=== PATIENT | male | born 1950 | race Hispanic/Latino ===

== ENCOUNTER 2020-07-18 13:15 | Inpatient (IN) | payer MEDICARE, MEDICAID, SELFPAY ==
[2020-07-18 13:16] VITALS: BP 168/91; PULSE 84; RESP 16; TEMP 36.6; O2SAT 100; BMI 22.3
--- NOTE | 2020-07-18 13:41 | EKG12_ITS ---
Test Reason : FALL Blood Pressure : / mmHG Vent. Rate : 078 BPM Atrial Rate : 078 BPM P-R Int : 196 ms QRS Dur : 068 ms QT Int : 366 ms P-R-T Axes : 078 050 058 degrees QTc Int : 417 ms Normal sinus rhythm Septal infarct , age undetermined Abnormal ECG Confirmed by LIZZY AVINA, MIKE ([id number]), clinical editor BRIDGETT VOGT ([id number]) on 07/19/2020 11:16:55 AM Referred By: EDGAR Confirmed By:MIKE BALL MD
--- NOTE | 2020-07-18 13:41 | RAD_ITS ---
STUDY: X-RAY - PELVIS AND RIGHT HIP REASON FOR EXAM: Male, 69 years old. FALL, RT HIP PAIN TECHNIQUE: 3 views of the pelvis and hip. COMPARISON: None. FINDINGS: There is a non-specific bowel gas pattern. Normal visualized soft tissue structures. There are atherosclerotic vascular calcifications. Normal bilateral iliac wings, sacroiliac joints and visualized sacrum. Normal bilateral superior and inferior pubic rami. Normal pubic symphysis. Normal bilateral ischial tuberosities. Displaced transverse fracture of the right femoral neck with moderate proximal subsidence of the femoral shaft. There is osteoarthritic spur formation of the acetabular rim. There is moderate articular joint space narrowing of the hip. RAD/HIP, UNI W/ Pelvis 2-3 Views IMPRESSION: Right femoral neck fracture with displacement. Electronically Signed: Colvis Ivan MD (Brooks) at 14:37 EST , Service support ,
--- NOTE | 2020-07-18 13:41 | RAD_ITS ---
STUDY: X-RAY CHEST REASON FOR EXAM: Male, 69 years old. FALL, RT HIP PAIN TECHNIQUE: AP COMPARISON: None. FINDINGS: There is a granuloma in the lateral left lower lobe. The lungs are clear and expanded. There is no demonstrated pleural abnormality. Normal size heart. There are calcified left hilar lymph nodes. Normal visualized pulmonary arteries. There is atherosclerotic calcification of the aortic arch with tortuosity. There is demineralization of the osseous structures. Normal visualized ribs, clavicles, and shoulders. There is no demonstrated abnormality of the visualized soft tissue structures of the upper abdomen. RAD/Chest 1 View (Portable) IMPRESSION: No acute cardiopulmonary process. Electronically Signed: Clovis Ivan MD (Brooks) at 14:37 EST , Service support ,
--- NOTE | 2020-07-18 13:42 | ED.VIS.GEN ---
History of Present Illness Chief Complaint: Fall Narrative: This patient is a 69-year-old male who presents with right hip pain. He fell while walking up the steps. He did not hit his head. He denies loss of consciousness. He complains of isolated right hip pain. He denies recent illness such as fevers chest pain difficulty breathing cough. He is not anticoagulated. Past Medical History - Allergies and Home Meds Allergies/Adverse Reactions: Allergies No Known Allergies Allergy (Verified 07/18/20 13:27) Primary Care Physician: NOT,DEFINED [NON-STAFF] - Past Medical History: - - Hypertension, hyperlipidemia Smoking Status: Current every day smoker Review of Systems All systems negative except as indicated General: Denies: Fever Eyes: Denies: Visual changes - bilaterally Cardiovascular: Denies: Chest pain Respiratory: Denies: Dyspnea Gastrointestinal: Denies: Abdominal pain Musculoskeletal: Reports: Extremity Pain. Denies: Myalgias, Arthralgias Skin: Denies: Rash Neurological: Denies: Headache Hematologic: Denies: Easy bruising Physical Exam Vital Signs/Narrative: Vital Signs Temp Pulse Resp BP Pulse Ox 07/18/20 13:16 97.8 F 84 16 168/91 H 100 Inital Vital Signs reviewed: Yes General: Well nourished Head: Normocephalic Eyes: EOMI ENT: Moist mucous membranes Neck: Nontender Cardiovascular: Regular rate, Regular rhythm Respiratory: No distress, CTA bilaterally Abdomen: Soft, Nontender Extremities: - - Painful limited range of motion of the right hip, tenderness of the right hip, pelvis stable, full passive range of motion of the bilateral upper extremities and left lower extremity without any apparent pain. Skin: Normal color Neurological: Alert Psychological: Normal affect Diagnostic/Tx/Re-eval Impressions Chest X-Ray 07/18/20 13:41 IMPRESSION: No acute cardiopulmonary process. Electronically Signed: Clovis Ivan MD (Brooks) at 14:37 EST , Service support , Hip/Pelvis X-Ray 07/18/20 13:41 IMPRESSION: Right femoral neck fracture with displacement. Electronically Signed: Clovis Ivan MD (Brooks) at 14:37 EST , Service support , 07/18/20 13:41 Chest 1 View (Portable) [RAD] Stat HIP, UNI W/ Pelvis 2-3 Views [RAD] Stat Laboratory Results 07/18/20 07/18/20 07/18/20 13:57 13:57 13:57 WBC 11.3 H RBC 4.84 Hgb 13.7 Hct 43.6 MCV 90.1 MCH 28.3 MCHC 31.4 L RDW Std Deviation 50.0 H RDW Coeff of Tabby 15.2 H Plt Count 204 MPV 10.1 Immature Gran % (Auto) 0.400 Neut % (Auto) 85.9 H Lymph % (Auto) 7.3 L [place] % (Auto) 6.1 Eos % (Auto) 0.1 Baso % (Auto) 0.2 Absolute Neuts (auto) 9.7 H Absolute Lymphs (auto) 0.82 L Nucleated RBC % 0 PT 13.0 INR 1.0 Sodium 142 Potassium 3.8 Chloride 108 H Carbon Dioxide 30.0 Anion Gap 4 L BUN 23 H Creatinine 0.76 Estim Creat Clear Calc 54.60 Est GFR (MDRD) Af Amer 130 Est GFR (MDRD) Non-Af 107 BUN/Creatinine Ratio 30.1 H Glucose 120 H Calcium 9.7 - Medical Decision Making Shows normal sinus rhythm at a rate of 78. Chest x-ray and serum laboratory studies essentially unremarkable. Right hip x-ray does show a displaced right femoral neck fracture. Patient was discussed with orthopedics on-call, Dr. Reyes who agrees to see the patient in consultation with likely plan for operative intervention tomorrow. Patient was admitted to the hospitalist service. ED Disposition - Plan for ED Patient: Disposition: Acute Care [facility] Diagnosis: Closed right hip fracture Referrals: NOT,DEFINED [NON-STAFF] -
[2020-07-18 14:04] LABS: Absolute Lymphocyte Count 0.82 X10^3/uL (0.83-4.51); Absolute Neutrophil Count 9.7 X10^3/uL (2.0-7.7); Basophil# 0.02 X10^3/uL; Basophil% 0.2 % (0-1); Eosinophil# 0.01 X10^3/uL; Eosinophils% 0.1 % (0-5); Hematocrit 43.6 % (40-54); Hemoglobin 13.7 g/dL (13.0-16.5); Lymphocyte # 0.82 X10^3/ul (4.0); Lymphocyte % 7.3 % (19-41); Mean Corp Hgb Conc 31.4 g/dL (32-36); Mean Corpuscular Hgb 28.3 pg (27.0-32.0); Mean Corpuscular Volume 90.1 fL (80-94); Mean Platelet Vol. 10.1 fl (6.2-12.0); Monocyte# 0.69 X10^3/uL; Monocyte% 6.1 % (0-10); NRBC Flagged by Analyzer 0 % (0-5); Neutrophil # 9.69 X10^3/uL (2.7-7.7); Neutrophil % 85.9 % (47-70); Platelet Count 204 K/mm3 (150-450); RBC Distribution Width CV 15.2 % (11.6-14.6); Red Blood Count 4.84 M/mm3 (4.6-6.2); White Blood Count 11.3 K/mm3 (4.4-11.0)
[2020-07-18 14:16] LABS: Anion Gap 4 (5-15); BUN 23 mg/dL (7-18); BUN/Creat Ratio 30.1 RATIO (10-20); Calcium,Total 9.7 mg/dL (8.5-10.1); Chloride 108 mmol/L (98-107); Creatinine, Serum 0.76 mg/dL (0.70-1.30); EST Glomerular Filtration Rate 107 mL/min (>60); Est Glom Filt Rate - Afr Amer 130 mL/min (>60); Glucose 120 mg/dL (74-106); Potassium 3.8 mmol/L (3.5-5.1); Sodium Level 142 mmol/L (136-145)
[2020-07-18] MEDS: Morphine 4 MG/ML Syringe IV (15:26)
[2020-07-18] MEDS: Ondansetron 4 MG/2 ML Vial IV (15:26)
--- NOTE | 2020-07-18 15:39 | HP.PCM_ITS ---
<Shayan Izaguirre - Last Filed: 07/18/20 15:39> Problem List (1) Closed right hip fracture Status: Acute History of Present Illness Date of Admission: 07/18/20 Chief Complaint: right hip pain The patient is a 69 year old M with unclear past medical hx who presented to the ER from [facility]. The patient is confused and unable to provide significant hx. He does not remember what happened today. He knows that his right leg hurts. Apparently he fell while walking up steps. He states he does not feel ill in any other way. He denies fever/chils, cough/sob, nausea/vomiting/diarrhea/abdominal pain. His xray in the ER revealed R femoral neck fx with displacement. [] Past Medical History Allergies No Known Allergies Allergy (Verified 07/18/20 13:27) Home Medications: Ambulatory Orders Medication Instructions Recorded Acetaminophen 2 tab PO BID PRN 07/18/20 Aspirin [Aspirin, Baby] 81 mg PO DAILY@0800 07/18/20 Metoprolol Succinate [Toprol Xl] 25 mg PO DAILY 07/18/20 Simvastatin 40 mg PO QHS 07/18/20 Surgical History: - - pt does not know Psychiatric History: No pertinent psych hx Lives: [facility] Smoking Status: Current every day smoker Tobacco Use: Cigarettes Alcohol: None Drugs: None - *Family History Maternal History Items: - - pt states he does not know his family hx Paternal History Items: - - pt states he does not know his family hx Review of Systems Constitutional: Denies: Chills, Fever, Weight Change HEENT: Denies: Head Aches, Sinus Congestion, Sinus Drainage Cardiovascular: Denies: Chest Pain, Palpitations Respiratory: Denies: Cough, Shortness of breath at rest, Sputum production Gastrointestinal: Denies: Abdominal Pain, Nausea, Vomiting Genitourinary: Denies: Dysuria Musculoskeletal: Reports: Joint Pain - right hip, Leg Pain - Right. Denies: Joint Tenderness Skin: Denies: Rash, Wounds Neurological: Denies: Numbness, Tingling, Focal weakness Psychiatric: Denies: Anxiety, Depression, Homicidal Ideations, Suicidal Ideations Hematologic/ Lymphatic: Denies: Easy Bruising, Easy Bleeding VTE Information - Inpt Only VTE Present on Admission: No VTE Mechan Device Prophylaxis: None VTE Pharm Prophylaxis ordered?: Yes Patient Problems: Active and Suspected Problems Closed right hip fracture (Acute) - Physical Exam Vitals/I&O's: Vital Signs Temp Pulse Resp BP Pulse Ox 97.8 F 84 16 168/91 H 100 07/18/20 13:16 07/18/20 13:16 07/18/20 13:16 07/18/20 13:16 07/18/20 13:16 Oxygen Delivery Method Room Air Weight: 122 lb 2.177 oz Body Mass Index (BMI) 22.3 General: Alert, Cooperative, Confused HEENT: Atraumatic, PERRLA, EOMI, Normocephalic Neck: Supple, No JVD, Negative Carotid Bruits Lungs: Clear to auscultation, Normal air movement Cardiovascular: Regular rate, No murmurs Abdomen: Bowel Sounds Present, Soft, Non Tender Extremities: No edema, Capillary Refill Less than 3 Seconds Skin: No rashes, No breakdown Musculoskeletal: No Tenderness to Palpation of Joints or Extremities Neurological: Cranial nerves II-XII grossly intact Psych/Mental Status: Normal Affect, Appropriate Laboratory Results 07/18/20 13:57: WBC 11.3 H, RBC 4.84, Hgb 13.7, Hct 43.6, MCV 90.1, MCH 28.3, MCHC 31.4 L, RDW Std Deviation 50.0 H, RDW Coeff of Tabby 15.2 H, Plt Count 204, MPV 10.1, Immature Gran % (Auto) 0.400, Neut % (Auto) 85.9 H, Lymph % (Auto) 7.3 L, [place] % (Auto) 6.1, Eos % (Auto) 0.1, Baso % (Auto) 0.2, Absolute Neuts (auto) 9.7 H, Absolute Lymphs (auto) 0.82 L, Nucleated RBC % 0 07/18/20 13:57: PT 13.0, INR 1.0 07/18/20 13:57: Sodium 142, Potassium 3.8, Chloride 108 H, Carbon Dioxide 30.0, Anion Gap 4 L, BUN 23 H, Creatinine 0.76, Estim Creat Clear Calc 54.60, Est GFR (MDRD) Af Amer 130, Est GFR (MDRD) Non-Af 107, BUN/Creatinine Ratio 30.1 H, Glucose 120 H, Calcium 9.7 Assessment/Plan All Active Problems Closed right hip fracture (Acute) 1. Right displaced fem neck fx - consult ortho. 2. ?HTN - continue metoprolol previously Rxd 3. ?HLD - continue statin pt previously Rxd 4. Nicotine abuse - pt states he smokes but does not know how much. patch if desired. Request records from SNF as his hx is unclear. DVT ppx: held for sg, post op as per ortho direction DC planning: PTOT evals. This patient was seen by Shayan Izaguirre PA-C under the supervision of Dr. Saez. <Chele Saez F - Last Filed: 07/18/20 16:46> History of Present Illness The patient is a 69 year old M [] Past Medical History Allergies No Known Allergies Allergy (Verified 07/18/20 13:27) - Physical Exam Vitals/I&O's: Vital Signs Temp Pulse Resp BP Pulse Ox 98.1 F 73 16 175/78 H 96 07/18/20 15:46 07/18/20 15:46 07/18/20 15:46 07/18/20 15:46 07/18/20 15:46 Oxygen Delivery Method Room Air Weight: 122 lb 2.177 oz Body Mass Index (BMI) 22.3 Microbiology Past 72 Hours 07/18/20 15:30 Mucosa - Nose SARS-CoV-2 Antigen (Rapid) - Final SARS-CoV-2 (COVID 19) Laboratory Results 07/18/20 13:57: WBC 11.3 H, RBC 4.84, Hgb 13.7, Hct 43.6, MCV 90.1, MCH 28.3, MCHC 31.4 L, RDW Std Deviation 50.0 H, RDW Coeff of Tabby 15.2 H, Plt Count 204, MPV 10.1, Immature Gran % (Auto) 0.400, Neut % (Auto) 85.9 H, Lymph % (Auto) 7.3 L, [place] % (Auto) 6.1, Eos % (Auto) 0.1, Baso % (Auto) 0.2, Absolute Neuts (auto) 9.7 H, Absolute Lymphs (auto) 0.82 L, Nucleated RBC % 0 07/18/20 13:57: PT 13.0, INR 1.0 07/18/20 13:57: Sodium 142, Potassium 3.8, Chloride 108 H, Carbon Dioxide 30.0, Anion Gap 4 L, BUN 23 H, Creatinine 0.76, Estim Creat Clear Calc 54.60, Est GFR (MDRD) Af Amer 130, Est GFR (MDRD) Non-Af 107, BUN/Creatinine Ratio 30.1 H, Glucose 120 H, Calcium 9.7 07/18/20 16:25: COVID-19 (DELVIS) Pending Addendum: Dr. Saez I personally examined the patient and reviewed the chart. I agree with the above. 69-year-old gentleman who [facility] and is unable to state why presents after a fall with a right femur fracture. Plan will be for operative repair in the morning. In the meantime can continue his metoprolol but hold his aspirin. He is not a great historian, he acknowledges that he smokes but he does not remember how much or how often. He says he does not even remember the fall that well but states that he did not hit his head. Disposition will [facility] be [facility] with [facility]. Inpatient E&M: 54908 Init Hosp L2
[2020-07-18 15:46] VITALS: BP 175/78; PULSE 73; RESP 16; TEMP 36.7; O2SAT 96
--- NOTE | 2020-07-18 16:27 | NURSING ---
This nurse called [facility] to inform them that pt is staying. This nurse informed Chavo Gomes of this and also that pt is COVID +. Chavo Gomes asked what he should do regarding his other residents. This nurse said to look at his policy and procedure guidelines.
--- NOTE | 2020-07-18 17:40 | ED.RN ---
LORRAINE RN NOTIFIED DR IBRAHIM NEEDS TO NOTIFIED OF COVID RESULTS. ALSO PT FREQUENTLY ATTEMPTING TO GET OUT TO OF THE BED
[2020-07-18 17:47] VITALS: BMI 21.6
[2020-07-18 17:53] VITALS: BMI 21.6
[2020-07-18 17:57] VITALS: BP 148/78; PULSE 73; RESP 20; TEMP 38.7; O2SAT 95
[2020-07-18] MEDS: Morphine 2 MG/ML Syringe IV ×2 (18:13→23:29)
[2020-07-18] MEDS: Acetaminophen 325 MG Tablet 650 MG PO (18:14)
[2020-07-18] MEDS: 0.9% Normal Saline 1,000 ML 100 ML IV (18:17)
[2020-07-18] MEDS: 0.9% Saline Lock 10 ML Syringe IV (18:17)
[2020-07-18 19:39] VITALS: BMI 21.6
[2020-07-18 20:03] VITALS: RESP 18; O2SAT 95
--- NOTE | 2020-07-18 20:23 | NURSING ---
spoke to adama gutierrez @ [facility] where pt lives she confirmed pt home med list, bat person is Marion Almonte @ [employer] msg left to call [facility], pt gets meds through gen through the counseling center. The counseling center has a person who speaks japanese if needed. primary rn notified. Pt is his own guardian. pt pcp is Paula Zurita @ [facility].
--- NOTE | 2020-07-18 21:49 | NURSING ---
07/18/20202139 Marion Almonte returned phone call and stated she is only his contact center agent and he does not have a POA. This RN asked if she felt he was able to understand enough Samoan to comprehend what the MD says and sign a consent form. She felt he understands basic Samoan and would be able to sign a consent for surgery as she has had to ask him questions over the phone and he responded appropriately. Marion says she does not speak yi but reiterated there is someone at the counseling center he goes to that could serve as an interpretor if needed.
[2020-07-18 22:13] VITALS: BP 130/71; PULSE 65; RESP 18; TEMP 38.3; O2SAT 95
[2020-07-18] MEDS: Atorvastatin Calcium 20 MG Tablet PO (22:18)
[2020-07-18 23:35] LABS: Bacteria 0 SEEN /hpf (None Seen); Mucous, Urine 0 SEEN /hpf (<or=2+); Squamous Epithelial Cells - UA 0 SEEN /hpf (0-5); White Blood Cells 0 SEEN /hpf (0-5)
[2020-07-18 23:44] LABS: Color, Urine Yellow (Yellow); Glucose, Dipstick Normal (Normal); Ketone-Dipstick 15 mg/dl (Negative); Leukocyte Esterase-Dipstick Negative /ul (Negative); Nitrite-Dipstick Negative (Negative); Occult Blood-Urine 250 /ul (Negative); Protein-Dipstick 100 mg/dl (Negative); Urine Bilirubin Dipstick Negative (Negative); Urine Clarity Clear (Clear); Urine Urobilinogen 4 mg/dl (Normal)
[2020-07-18 23:55] LABS: Red Blood Cells-Urine 5-10 SEEN /hpf (0-5)
[2020-07-19] VITALS (15 sets, daily range): BP systolic 85–133; BP diastolic 54–77; PULSE 48–70; RESP 16–18; TEMP 36.3–37.3; O2SAT 94–100; BMI 21.6
[2020-07-19] MEDS: 0.9% Normal Saline 1,000 ML 100 ML IV ×2 (04:17→14:20)
--- NOTE | 2020-07-19 07:21 | PCM.PN.HOSP ---
Patient Problems: Active and Suspected Problems Closed right hip fracture (Acute) Reason for Visit: Follow-up on acute hip fracture Subjective: He was seen and examined. No acute event. He underwent hip replacement Objective: Physical exam: General: Alert, Cooperative, Confused HEENT: Atraumatic, PERRLA, Normocephalic, cataract and corneal opacity of the right eye Neck: Supple, No JVD, Negative Carotid Bruits Lungs: Clear to auscultation, Normal air movement Cardiovascular: Regular rate, No murmurs Abdomen: Bowel Sounds Present, Soft, Non Tender Extremities: No edema, Capillary Refill Less than 3 Seconds Skin: No rashes, No breakdown Musculoskeletal: No Tenderness to Palpation of Joints or Extremities Neurological: Cranial nerves II-XII grossly intact Psych/Mental Status: Normal Affect, Appropriate Vitals/I&O's: Vital Signs Temp Pulse Resp BP Pulse Ox 99.1 F 64 16 123/77 H 97 07/19/20 04:24 07/19/20 04:24 07/19/20 04:24 07/19/20 04:24 07/19/20 04:24 Oxygen Delivery Method Room Air Weight: 48.6 kg Body Mass Index (BMI) 21.6 Intake and Output for Last 24 Hours 07/17/20 07/18/20 07/19/20 23:59 23:59 23:59 Intake Total 1000 / 1000 Output Total 250 / 250 Balance 750 / 750 Microbiology Past 72 Hours 07/18/20 15:30 Mucosa - Nose SARS-CoV-2 Antigen (Rapid) - Final SARS-CoV-2 (COVID 19) Laboratory Results 07/18/20 13:57: WBC 11.3 H, RBC 4.84, Hgb 13.7, Hct 43.6, MCV 90.1, MCH 28.3, MCHC 31.4 L, RDW Std Deviation 50.0 H, RDW Coeff of Tabby 15.2 H, Plt Count 204, MPV 10.1, Immature Gran % (Auto) 0.400, Neut % (Auto) 85.9 H, Lymph % (Auto) 7.3 L, [place] % (Auto) 6.1, Eos % (Auto) 0.1, Baso % (Auto) 0.2, Absolute Neuts (auto) 9.7 H, Absolute Lymphs (auto) 0.82 L, Nucleated RBC % 0 07/18/20 13:57: PT 13.0, INR 1.0 07/18/20 13:57: Sodium 142, Potassium 3.8, Chloride 108 H, Carbon Dioxide 30.0, Anion Gap 4 L, BUN 23 H, Creatinine 0.76, Estim Creat Clear Calc 54.60, Est GFR (MDRD) Af Amer 130, Est GFR (MDRD) Non-Af 107, BUN/Creatinine Ratio 30.1 H, Glucose 120 H, Calcium 9.7 07/18/20 16:25: COVID-19 (DELVIS) Not Detected 07/18/20 23:30: Urine Color Yellow, Urine Clarity Clear, Urine pH 7.0, Ur Specific [place] 1.010, Urine Protein 100 H, Urine Glucose (UA) Normal, Urine Ketones 15 H, Urine Occult Blood 250 H, Urine Nitrite Negative, Urine Bilirubin Negative, Urine Urobilinogen 4 H, Ur Leukocyte Esterase Negative, Urine RBC 5-10 SEEN, Urine WBC 0 SEEN, Ur Squamous Epith Cells 0 SEEN, Urine Bacteria 0 SEEN, Urine Mucus 0 SEEN Current Medications Acetaminophen (Acetaminophen 325 Mg Tablet) 650 mg PO Q6H PRN PRN PRN Reason: Pain Score 1-10/Temp > 100.7 F Last Admin: 07/18/20 18:14 Dose: 650 mg Documented by: Atorvastatin Calcium (Atorvastatin Calcium 20 Mg Tablet) 20 mg PO QHS [facility] Last Admin: 07/18/20 22:18 Dose: 20 mg Documented by: Sodium Chloride 68.4 ml/Ropivacaine 20 ml/ Epinephrine HCl 0.6 mg/ Morphine Sulfate 5 mg/ Ketorolac Tromethamine 30 mg 0 ml OPERA.SITE X1 ONE Stop: 07/19/20 09:31 Sodium Chloride () 1,000 mls @ 100 mls/hr IV .Q10H [facility] Last Admin: 07/19/20 04:17 Dose: 100 mls/hr Documented by: Sodium Chloride () 250 mls @ 15 mls/hr IV .[id number] PRN PRN Reason: Saline Flush Sodium Chloride () 250 mls @ 15 mls/hr IV .[id number] PRN PRN Reason: Additional IVPB Infusion Cefazolin Sodium 2 gm/ Sodium (Chloride) 110 mls @ 150 mls/hr IV X1 ONE Stop: 11/27/20 09:13 Melatonin (Melatonin 3 Mg Tablet) 3 mg PO QHS PRN PRN PRN Reason: INSOMNIA Metoprolol Succinate (Metoprolol(Xl)Succ 25 Mg Tablet) 25 mg PO DAILY JUSTINA Morphine Sulfate (Morphine 2 Mg/Ml Syringe) 2 mg IV Q3H PRN PRN PRN Reason: Pain Score 6-10 Last Admin: 07/18/20 23:29 Dose: 2 mg Documented by: Ondansetron HCl (Ondansetron 4 Mg/2 Ml Vial) 4 mg IV Q8H PRN PRN PRN Reason: NAUSEA/VOMITING Sodium Chloride (0.9% Saline Lock 10 Ml Syringe) 10 - 40 ml IV UD PRN PRN Reason: SALINE FLUSH Last Admin: 07/18/20 18:17 Dose: 10 ml Documented by: STROKE Vital Signs/Narrative: Vital Signs Temp Pulse Resp BP Pulse Ox 07/19/20 04:24 99.1 F 64 16 123/77 H 97 Medical Necessity - Tobacco Use Smoking Status: Current every day smoker Tobacco Use: Cigarettes Assessment/Plan All Active Problems Closed right hip fracture (Acute) 1. Postop day #0 status post right hip open reduction internal fixation, intramedullary nail fixation for right hip displaced intertrochanteric fracture Pain is fairly controlled, continue on Vicodin, morphine as needed Surgical site recommendations per orthopedics Continue on PT/OT evaluations 2. Nicotine dependence, on replacement 3. DVT PPx- per orthopedics Inpatient E&M: [id number] [facility] Hosp L2
--- NOTE | 2020-07-19 07:54 | NURSING ---
Lisa from surgery her to supervisor picking crew pt, informed her he did not have 2ns chlorahex, she called surgery/ac and they said to send him.
[2020-07-19 07:59] LABS: Absolute Lymphocyte Count 2.07 X10^3/uL (0.83-4.51); Absolute Neutrophil Count 7.1 X10^3/uL (2.0-7.7); Basophil# 0.03 X10^3/uL; Basophil% 0.3 % (0-1); Eosinophil# 0.05 X10^3/uL; Eosinophils% 0.5 % (0-5); Hemoglobin 12.6 g/dL (13.0-16.5); Lymphocyte # 2.07 X10^3/ul (4.0); Mean Corp Hgb Conc 31.5 g/dL (32-36); Mean Corpuscular Hgb 28.3 pg (27.0-32.0); Mean Corpuscular Volume 89.9 fL (80-94); Mean Platelet Vol. 9.6 fl (6.2-12.0); Monocyte% 10.6 % (0-10); NRBC Flagged by Analyzer 0 % (0-5); Neutrophil # 7.06 X10^3/uL (2.7-7.7); Neutrophil % 68.3 % (47-70); Platelet Count 180 K/mm3 (150-450); RBC Distribution Width CV 15.1 % (11.6-14.6); RBC Distribution Width SD 50.4 fl (35.1-43.9); Red Blood Count 4.45 M/mm3 (4.6-6.2); White Blood Count 10.3 K/mm3 (4.4-11.0)
[2020-07-19 08:14] LABS: Anion Gap 3 (5-15); BUN 17 mg/dL (7-18); BUN/Creat Ratio 24.9 RATIO (10-20); Calcium,Total 8.7 mg/dL (8.5-10.1); Chloride 109 mmol/L (98-107); Creatinine, Serum 0.68 mg/dL (0.70-1.30); EST Glomerular Filtration Rate 122 mL/min (>60); Est Glom Filt Rate - Afr Amer 148 mL/min (>60); Glucose 90 mg/dL (74-106); Potassium 3.6 mmol/L (3.5-5.1); Sodium Level 139 mmol/L (136-145)
--- NOTE | 2020-07-19 08:16 | PCM.OP.PRO ---
Procedure Report Date of Procedure: 07/19/20 Preoperative diagnosis: Righty hip displaced intertrochanteric fracture Postoperative diagnosis: Same Title of operation: Right hip open reduction internal fixation, intramedullary nail fixation, locked Surgeon: Dr. Darrell Reyes Kindergarten Teacher Assistant: Andressa Santillan PA-C Anesthesia: spinal Medications: Ancef Complications: None EBL: Less than 50 Anesthesia provider: Dr. De La Garza Indications for surgery: Patient is an 69-year-old female sustained a hip fracture yesterday. Patient explained diagnosis and treatment options. Patient evaluated by the medical services and anesthesia service. Patient did wish to have surgery. Appropriate informed consent obtained and signed. Findings: Patient had a displaced intertrochanteric hip fracture. They underwent standard reduction, internal fixation using a Baldemar short gamma nail. X-rays taken throughout. advertising assistant manager, physician perinatal breastfeeding assistant, was utilized throughout the entire procedure. They were vital to the procedure from beginning to end. They help with patient transfer, patient padding and positioning, fracture reduction, maintenance of fracture reduction, internal fixation of implants, wound closure, bandage application, patient transfer. Without surgical aides teacher, surgical time would have been significantly increased and surgical outcome could have been less optimal. Procedure: Patient was taken to the operating room. Placed under a general anesthetic and transferred to the operating table with the help of the perinatal breastfeeding assistant. With the help of the perinatal breastfeeding assistant patient was prepped and padded for surgery. Operative side foot was well-padded and placed in the traction boot. Uninjured lower extremity was abducted and flexed out of harms way. VALENCIA hose and SCDs utilized. Fluoroscopy was brought in. With the help of the perinatal breastfeeding assistant and manipulation of the limb, reduction was nicely obtained as verified under AP lateral and oblique fluoroscopic images. . Operative hip/thigh was prepped padded draped in usual orthopedic sterile fashion for the procedure. Longitudinal incision was made just proximal to the greater trochanter. Taken through skin and subcutaneous tissue. Sharp awl was placed on the tip of the greater trochanter. Position verified under AP and lateral fluoroscopic images. This was then taken down inside the bone. Slightly bent ball-tipped guide wallace was then placed from the tip of the greater trochanter into the intra-medullary canal of the femur. Its position verified radiographically. Reamer was then done over the tip of this with the help of the perinatal breastfeeding assistant holding the soft tissue protector appropriately. Once reaming was done we placed the short 125? angle device over the guidepin. This was easily introduced. Guide wallace removed. Outrigger device was utilized to position a guidepin from the lateral cortex of the femur across the fracture site and into the femoral head in a good position centrally, as noted on AP lateral and oblique fluoroscopic images. This was measured. Appropriate reaming done. Appreciate length lag screw was placed from the lateral cortex of the femur into the femoral head. A small amount of the screw was noted to be protruding laterally as planned. No cartilage penetration of the femoral head noted on any x-ray. Fracture was then compressed with the outrigger device. Proximal cap screw was placed by the perinatal breastfeeding assistant seated down completely, confirmed, and then loosened one fourth turn. We then used the outrigger device to place distal cross locking screw under standard technique. This was confirmed to be of adequate length in good position on AP and lateral images. Outrigger device removed. Final set of AP and lateral proximal x-rays taken and saved. Incisions thoroughly irrigated. Closing by the perinatal breastfeeding assistant with deep 0 Vicryl, mid layer 0 Vicryl, inverted 2-0 Vicryl, skin simone. Puncture wounds closed with inverted 2-0 Vicryl and simone. Xeroform 4 x 4's ABD tape applied. Patient was awoken from their anesthetic, transferred back to their own bed with the help of the perinatal breastfeeding assistant and into recovery room in satisfactory condition. Patient will continue to be admitted to the hospital under the hospitalist service. This note was generated with [employer] dictation software. It may contain incorrect words, spelling, and punctuation that were not noted in checking the note before signing. Ancef 1 g IV was given for preoperative antibiotic. We will plan aspirin 81 mg twice a day for DVT prevention
--- NOTE | 2020-07-19 08:50 | PCM.CONS.GEN ---
Reason for Consult Date of Consultation: 07/19/20 History of Present Illness: The patient is a 69 year old male that reportedly fell yesterday fracturing his right hip. He denies pre-existing right hip pain. Patient does seem to understand Jamaican. He did answer most questions appropriately and did follow commands. However he was not certain who is the president. He also did not know what city he was in. He did know he was in the hospital. He stated the hospital is in [facility]. According to the patient he is relatively active and does walk. He states he has not needed a cane or walker for pre-existing hip pain or problems. According to the nursing staff patient could not give his own consent. 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 [] Past Medical History Allergies No Known Allergies Allergy (Verified 07/18/20 13:27) Home Medications: Ambulatory Orders Medication Instructions Recorded Acetaminophen 2 tab PO BID PRN 07/18/20 Aspirin [Aspirin, Baby] 81 mg PO DAILY@0800 07/18/20 Metoprolol Succinate [Toprol Xl] 25 mg PO DAILY 07/18/20 Simvastatin 40 mg PO QHS 07/18/20 Surgical History: - - pt does not know Psychiatric History: No pertinent psych hx Lives: Intermediate Smoking Status: Current every day smoker Tobacco Use: Cigarettes Alcohol: None Drugs: None - *Family History Maternal History Items: - - pt states he does not know his family hx Paternal History Items: - - pt states he does not know his family hx Patient Problems: Active and Suspected Problems Closed right hip fracture (Acute) Objective: Right hip has shortening and external rotation. Right hip has pain on palpation. Left hip had no pain on palpation. He did plantarflex and dorsiflex toes and ankles bilaterally on command. Normal sensation. Distal pulses intact. Skin is intact about the right hip. X-rays AP pelvis AP and lateral right hip shows a displaced right femoral neck fracture. Mild pre-existing right hip arthritis. No severe osteoporosis. Review of systems not obtainable, patient poor historian Vital signs and laboratory work reviewed. - Physical Exam Vitals/I&O's: Vital Signs Temp Pulse Resp BP Pulse Ox 99.1 F 64 16 123/77 H 97 07/19/20 04:24 07/19/20 04:24 07/19/20 04:24 07/19/20 04:24 07/19/20 04:24 Oxygen Delivery Method Room Air Weight: 48.6 kg Body Mass Index (BMI) 21.6 Intake and Output for Last 24 Hours 07/17/20 07/18/20 07/19/20 23:59 23:59 23:59 Intake Total 1000 / 1000 Output Total 250 / 250 Balance 750 / 750 Microbiology Past 72 Hours 07/18/20 15:30 Mucosa - Nose SARS-CoV-2 Antigen (Rapid) - Final SARS-CoV-2 (COVID 19) Laboratory Results 07/18/20 13:57: WBC 11.3 H, RBC 4.84, Hgb 13.7, Hct 43.6, MCV 90.1, MCH 28.3, MCHC 31.4 L, RDW Std Deviation 50.0 H, RDW Coeff of Tabby 15.2 H, Plt Count 204, MPV 10.1, Immature Gran % (Auto) 0.400, Neut % (Auto) 85.9 H, Lymph % (Auto) 7.3 L, Bandera % (Auto) 6.1, Eos % (Auto) 0.1, Baso % (Auto) 0.2, Absolute Neuts (auto) 9.7 H, Absolute Lymphs (auto) 0.82 L, Nucleated RBC % 0 07/18/20 13:57: PT 13.0, INR 1.0 07/18/20 13:57: Sodium 142, Potassium 3.8, Chloride 108 H, Carbon Dioxide 30.0, Anion Gap 4 L, BUN 23 H, Creatinine 0.76, Estim Creat Clear Calc 54.60, Est GFR (MDRD) Af Amer 130, Est GFR (MDRD) Non-Af 107, BUN/Creatinine Ratio 30.1 H, Glucose 120 H, Calcium 9.7 07/18/20 16:25: COVID-19 (DELVIS) Not Detected 07/18/20 23:30: Urine Color Yellow, Urine Clarity Clear, Urine pH 7.0, Ur Specific [place] 1.010, Urine Protein 100 H, Urine Glucose (UA) Normal, Urine Ketones 15 H, Urine Occult Blood 250 H, Urine Nitrite Negative, Urine Bilirubin Negative, Urine Urobilinogen 4 H, Ur Leukocyte Esterase Negative, Urine RBC 5-10 SEEN, Urine WBC 0 SEEN, Ur Squamous Epith Cells 0 SEEN, Urine Bacteria 0 SEEN, Urine Mucus 0 SEEN 07/19/20 07:48: WBC 10.3, RBC 4.45 L, Hgb 12.6 L, Hct 40.0, MCV 89.9, MCH 28.3, MCHC 31.5 L, RDW Std Deviation 50.4 H, RDW Coeff of Tabby 15.1 H, Plt Count 180, MPV 9.6, Immature Gran % (Auto) 0.300, Neut % (Auto) 68.3, Lymph % (Auto) 20.0, Bandera % (Auto) 10.6 H, Eos % (Auto) 0.5, Baso % (Auto) 0.3, Absolute Neuts (auto) 7.1, Absolute Lymphs (auto) 2.07, Nucleated RBC % 0 07/19/20 07:48: Sodium 139, Potassium 3.6, Chloride 109 H, Carbon Dioxide 27.0, Anion Gap 3 L, BUN 17, Creatinine 0.68 L, Estim Creat Clear Calc 48.60, Est GFR (MDRD) Af Amer 148, Est GFR (MDRD) Non-Af 122, BUN/Creatinine Ratio 24.9 H, Glucose 90, Calcium 8.7 07/19/20 07:48: Blood Type Pending, Antibody Screen Pending Current Medications Acetaminophen (Acetaminophen 325 Mg Tablet) 650 mg PO Q6H PRN PRN PRN Reason: Pain Score 1-10/Temp > 100.7 F Last Admin: 07/18/20 18:14 Dose: 650 mg Documented by: Atorvastatin Calcium (Atorvastatin Calcium 20 Mg Tablet) 20 mg PO QHS [facility] Last Admin: 07/18/20 22:18 Dose: 20 mg Documented by: Sodium Chloride 68.4 ml/Ropivacaine 20 ml/ Epinephrine HCl 0.6 mg/ Morphine Sulfate 5 mg/ Ketorolac Tromethamine 30 mg 0 ml OPERA.SITE X1 ONE Stop: 07/19/20 09:31 Sodium Chloride () 1,000 mls @ 100 mls/hr IV .Q10H [facility] Last Admin: 07/19/20 04:17 Dose: 100 mls/hr Documented by: Sodium Chloride () 250 mls @ 15 mls/hr IV .[id number] PRN PRN Reason: Saline Flush Sodium Chloride () 250 mls @ 15 mls/hr IV .[id number] PRN PRN Reason: Additional IVPB Infusion Cefazolin Sodium 2 gm/ Sodium (Chloride) 110 mls @ 150 mls/hr IV X1 ONE Stop: 07/19/20 09:13 Cefazolin Sodium () 1 gm in 50 mls @ 100 mls/hr IV Q6 JUSTINA Stop: 07/20/20 00:29 Melatonin (Melatonin 3 Mg Tablet) 3 mg PO QHS PRN PRN PRN Reason: INSOMNIA Metoprolol Succinate (Metoprolol(Xl)Succ 25 Mg Tablet) 25 mg PO DAILY JUSTINA Morphine Sulfate (Morphine 2 Mg/Ml Syringe) 2 mg IV Q3H PRN PRN PRN Reason: Pain Score 6-10 Last Admin: 07/18/20 23:29 Dose: 2 mg Documented by: Ondansetron HCl (Ondansetron 4 Mg/2 Ml Vial) 4 mg IV Q8H PRN PRN PRN Reason: NAUSEA/VOMITING Sodium Chloride (0.9% Saline Lock 10 Ml Syringe) 10 - 40 ml IV UD PRN PRN Reason: SALINE FLUSH Last Admin: 07/18/20 18:17 Dose: 10 ml Documented by: Assessment/Plan All Active Problems Closed right hip fracture (Acute) Right hip displaced femoral neck fracture. Diagnosis and treatment options discussed with patient. Possibility of a press-fit or cemented hip stem exist. Possibility of total hip replacement or hemiarthroplasty. Patient has conflicting Covid test. Has had temperature max 101.7. Urine culture pending. Decision regarding implants will be made intraoperatively. Risk of surgery including but not limited to from operative or postoperative complications. Risk of anesthetic complications such as heart attacks, strokes, seizures, or . Risk of infections. Risk of damage to nerves arteries tendons. Risk of inadvertent fractures or dislocations. Risk of bone or wound healing complications. Possibility of nonunion malunion pain stiffness weakness. Possible need for further surgery such as hardware removal. Risk of DVT PE and other potential complications could lead to or disability explained. No guarantees were stated or implied. All of their questions were answered. Appropriate informed consent was obtained and signed for surgical intervention. Increased risk of postoperative complications based on patient comorbidities, possible Covid status, discussed with him. Also case discussed with anesthesia. Planning to proceed with probable spinal anesthetic. Ancef will be used for perioperative antibiotic. Plan aspirin for DVT prevention unless hospitalist service feels different blood thinner will be necessary
[2020-07-19] MEDS: Cefazolin 2 GM in 0.9% Normal Saline 100 ML IV (09:29)
--- NOTE | 2020-07-19 09:40 | HIP_PTH ---
PATIENT: JARED CASH LOC: [facility] U#:[id number] AGE/SX: 69/M ROOM: IL317 RE07/18/[address]: Dr. Funmi Chapin DO : 1950 BED: 1 DIS: 07/23/2020 SPEC #: [id number] RECD: 07/19/20 11:14 STATUS: BC REQ #: [id number] LANE: 07/19/20 09:[address]: Darrell Reyes DEPT: SURGICAL PATHOLOGY RECD BY: Alpa Martinez ENTERED: 07/19/20 11:42 SP TYPE: TOTAL HIP OTHR DR: MD Dr. Chele Kc MD Dr. Rodney Miller, MD Tissues: Hip, NOS Procedures: Decalcification bone/plaque Surgery Specimen Level IV Comments: @ Ordering doctor for DEC edited from to [email or web address] Skelton by DAHLIA at 07/19/20 1159 @ Ordering doctor for SUV edited from to @ by DAHLIA at 07/19/20 1159 @ Submitting doctor edited from to @ by [email or web address] at 07/19/20 1159 HEADER OPERATION: Right hip hemiarthroplasty PRE-OP DIAGNOSIS: Fractured right hip TISSUE SUBMITTED: Right femoral head, bone and tissue MICROSCOPIC DIAGNOSIS Bone and soft tissue of right hip, hemiarthroplasty: Consistent with organizing fracture callus. AM:braydon 07/24/20 MICROSCOPIC DESCRIPTION Slides are reviewed. GROSS DESCRIPTION Received is one container labeled with the patient's name and designated right femoral head, bone and tissue. The specimen consists of a femoral head measuring 4.5 x 4.5 x 4 cm. The articular surface is smooth. The resection margin is irregular and hemorrhagic. Also present in the specimen container are two detached pieces of bone measuring in aggregate 4 x 4.5 x 3 cm. Also present in the container is a detached piece of soft tissue measuring 2.5 x 1 x 0.3 cm. Candy Dipper Hand sections are submitted in three cassettes as follows: 1 - soft tissue, 2 - detached pieces of bone, 3 - femoral head. Cassettes 2 and 3 are submitted after decalcification. / SJ:braydon 07/19/20 TC:5 CPT: 52788, 85072
--- NOTE | 2020-07-19 10:29 | PRO.PCM_ITS ---
Procedure Report Date of Procedure: 07/19/20 Preoperative diagnosis: Right hip displaced femoral neck fracture Postoperative diagnosis: Same Operation: Right hip press-fit hemiarthroplasty Surgeon: Dr. Darrell Reyes MD Snake Charmer: Andressa Santillan PA-C EBL 50 Complications: None Anesthesia: Spinal Anesthesiologist; Dr. De La Garza Special medications: IV [Ancef], Indications for surgery : Patient is a 69 -year-old [male] that fell yesterday fracturing his right hip. Appropriate informed consent was obtained and signed. Appropriate medical workup was performed preoperatively and patient was deemed safe for surgery by the anesthesia department. assistant kitchen managerDAVID was utilized throughout the entire procedure. They were vital in helping with patient positioning, holding of retractors, exposing the tissues adequately for safe completion of the procedure including cutting of the bone, helping change room attendant appropriate alignment and sizing of the components, implantation of the components, as well as wound closure, bandage application, and safe patient transfer. Without surgical aides teacher, physician library technical assistant, surgical time would have been significantly increased, and surgical outcome would have been less optimal. Operative findings: Patient displaced comminuted right femoral neck fracture. We used a Baldemar Accolade2 press-fit stem size #6 127 degree neck angle. Bipolar 50 mm femoral head with a +4 neck length. This reproduced there anatomy nicely. Clinically good leg lengths were noted. Good hip stability through range of motion with no undue pistoning. Standard wound closure in layers, followed by simone, followed by Mepilex dressing Details of procedure: Patient was taken to the operating room and transferred to the operating table. Given appropriate anesthetic agent by that department. Patient was then rolled into a lateral decubitus position with the involved painful hip up in the air. Appropriate timeouts had been performed. Hip had been appropriately marked with my initials. Padded anterior and posterior position was utilized. Axillary roll placed. VALENCIA hose and SCDs on the nonoperative limb utilized throughout the procedure. Operative lower extremity was prepped padded and draped in the usual orthopedic sterile fashion for the procedure. I injected the pain relieving solution in the standard sterile technique of the soft tissues of the hip carefully. Incision was made curving over the tip of the greater trochanter posteriorly. Full thickness skin flaps are raised down on the fascia eduardo. Fascia eduardo was opened in length with our incision. Charnley self-retaining hip retractor was carefully placed by the surgeon. Leg was appropriately rotated by the library technical assistant. Retractor was used to lift the abductors anteriorly to visualize the piriformis tendon and external rotators. Piriformis tendon and external rotators released off the greater trochanter with the Bovie. Tagging suture was placed in each of these separately. We then split the tissue superior to the piriformis tendon through capsule and onto the pelvis. Acetabular labrum was preserved. Retractors were carefully placed around the femoral neck. Displaced unstable femoral neck fracture identified. cutting guide was utilized to map out the proposed cut approximately 1 fingerbreadth above the lesser trochanter. This femoral neck cut was carried out with a saw. Fractured femoral head removed and measured and inspected. Femoral head was measured. Appropriate trial was utilized. A proximal femoral elevator utilized. We used a sharp awl entering down inside the bone of the proximal femur. Utilized the Admittedly cutting osteotome the proximal lateral greater trochanteric region. The fragment removed. Broaching was then done from the smallest broach, upto the appropriate size. Good stability was confirmed. We then trialed the construct with a standard neck length and appropriate sized femoral head. We were happy with the construct. Good stability to flexion, rotation. At this point trials removed. Actual size 6 stem was press-fit into position. Pain relieving solution was injected while this was occurring. We now again trialed and appropriate neck length decided upon. It was then opened. Now impacted the appropriate sized femoral head, neck construct onto the clean dried trunion. Was noted to be stable. Hip was inspected, and joint was reduced for a final time. Good hip stability and leg lengths noted. This was then irrigated with saline and cleaned. Next the remainder of the pain relieving solution was injected carefully throughout the soft tissues of the hip joint. Closure was carried out with a combination of #1 Vicryl repairing the hip capsule as well as piriformis tendon and external rotators to bone, running #2 strata fix in the fascia eduardo, followed by mid layer #1 Vicryl with #1 strata fix running. Next running 0 strata fix, followed by skin simone, Xeroform, Mepilex dressing. We placed VALENCIA hose and SCD on the operative leg. Patient awoken from the anesthetic and transferred back to room bed in recovery room in satisfactory condition. Patient will be admitted to the hospital. Hospitalist service will continue to manage the medical issues. Hopeful discharge to home or ECF in 2-3 days. This note was generated with [employer] dictation software. It may contain incorrect words, spelling, and punctuation that were not noted in checking the note before signing. Ancef 2 g IV was given preoperatively. We will plan on aspirin 81 mg twice a day postoperatively for DVT prevention Please note that an operative note for a intertrochanteric fracture was inadvertently placed on this patient's medical record and will be deleted when medical record staff/IT department available to manage this
--- NOTE | 2020-07-19 10:57 | RAD_ITS ---
STUDY: X-RAY - PELVIS AND RIGHT HIP REASON FOR EXAM: Male, 69 years old. post op hip surgery TECHNIQUE: 3 views of the pelvis and hip. COMPARISON: None. FINDINGS: There is a non-specific bowel gas pattern. Normal visualized soft tissue structures. There are atherosclerotic vascular calcifications. There is narrowing with cortical sclerosis and osteophyte formation of the sacroiliac joint consistent with degenerative osteoarthritic changes. Normal bilateral superior and inferior pubic rami. Normal pubic symphysis. Normal bilateral ischial tuberosities. Right hip replacement in radiographic alignment. Expected soft tissue swelling, air and surgical skin simone given recent surgery. RAD/Hip Min 2 Views (Portable) IMPRESSION: Radiographic alignment of right hip replacement with recent operative changes. Electronically Signed: Clovis Ivan MD (Brooks) at 11:31 EST , Service support ,
--- NOTE | 2020-07-19 15:19 | CASEMGMT ---
Social Work SW met with a pt in room and attempted to assess pt and discuss discharge plan. Pt is awake but not able to answer SW questions appropriately. At times pt speaking ukrainian and at times pt speaking Greenlandic but not answering questions appropriately. SW spoke with Nikolas at [facility] which is a [facility]. He states pt is A&O x3 and able to make his own decisions. Pt does not have a guardian but does have a Liaison, Marion, from [employer] and she is listed on pt demographic sheet. Pt is able to provide self care and mcc does laundry, cleaning, med management and transportation. According to Nikolas pt also has [facility] the [facility] but Nikolas is not sure what. Pt did have surgery to repair femur fx earlier today. SW will followup when pt has had time to recover from surgical procedure and is more alert and oriented. Plan: HEATHER Thayer
--- NOTE | 2020-07-19 16:09 | CASEMGMT ---
Social Work SW spoke with Marion Almonte on phone. Marion is pt Air Crew Member at [employer] who is payee and support person. Marion confirms pt does not have a guardian or HCPOA and that pt is his own decision maker. Marion states pt has a diagnosis of depressive disorder but does not believe he is getting any services or treatment for this. ARIELLA will continue to follow. HEATHER Calvillo
[2020-07-19] MEDS: Cefazolin 1 GM/50 ML BAG IV ×2 (16:33→20:52)
[2020-07-19] MEDS: Aspirin E.C. 81 MG Tablet PO (16:38)
[2020-07-19] MEDS: HYDROcodone Bitartrate/Apap 5/325 Tablet PO ×2 (16:38→20:51)
[2020-07-19] MEDS: Atorvastatin Calcium 20 MG Tablet PO (22:15)
[2020-07-20] MEDS: 0.9% Normal Saline 1,000 ML 100 ML IV ×3 (00:34→20:36)
[2020-07-20 00:50] VITALS: BMI 21.6
[2020-07-20 01:56] VITALS: BP 140/60; PULSE 92; RESP 18; TEMP 37.2; O2SAT 98
[2020-07-20] MEDS: Cefazolin 1 GM/50 ML BAG IV (02:54)
[2020-07-20 04:50] VITALS: BMI 21.6
[2020-07-20] MEDS: Morphine 2 MG/ML Syringe IV (04:53)
[2020-07-20] MEDS: 0.9% Saline Lock 10 ML Syringe IV (04:53)
[2020-07-20] MEDS: HYDROcodone Bitartrate/Apap 5/325 Tablet PO ×3 (07:35→20:36)
[2020-07-20 08:00] VITALS: BP 100/56; PULSE 71; RESP 16; TEMP 36.7; O2SAT 98
[2020-07-20 08:11] LABS: AST(SGOT) 26 U/L (15-37); Alanine Aminotransfer ALT/SGPT 13 U/L (16-61); Alkaline Phosphatase 53 U/L (45-117); Anion Gap 5 (5-15); BUN 16 mg/dL (7-18); BUN/Creat Ratio 24.2 RATIO (10-20); Calcium,Total 7.7 mg/dL (8.5-10.1); Chloride 113 mmol/L (98-107); Creatinine, Serum 0.66 mg/dL (0.70-1.30); EST Glomerular Filtration Rate 127 mL/min (>60); Est Glom Filt Rate - Afr Amer 153 mL/min (>60); Globulin 2.9 g/dL (2.2-4.2); Glucose 134 mg/dL (74-106); Potassium 3.3 mmol/L (3.5-5.1); Protein, Total 5.9 g/dL (6.4-8.2); Sodium Level 143 mmol/L (136-145)
[2020-07-20] MEDS: Aspirin E.C. 81 MG Tablet PO ×2 (08:12→15:51)
[2020-07-20 08:47] LABS: Absolute Lymphocyte Count 1.28 X10^3/uL (0.83-4.51); Absolute Neutrophil Count 5.5 X10^3/uL (2.0-7.7); Basophil# 0.01 X10^3/uL; Basophil% 0.1 % (0-1); Eosinophil# 0.02 X10^3/uL; Eosinophils% 0.3 % (0-5); Hematocrit 29.7 % (40-54); Hemoglobin 9.4 g/dL (13.0-16.5); Lymphocyte # 1.28 X10^3/ul (4.0); Lymphocyte % 16.9 % (19-41); Mean Corp Hgb Conc 31.6 g/dL (32-36); Mean Corpuscular Hgb 28.4 pg (27.0-32.0); Mean Corpuscular Volume 89.7 fL (80-94); Mean Platelet Vol. 10.1 fl (6.2-12.0); Monocyte# 0.76 X10^3/uL; NRBC Flagged by Analyzer 0 % (0-5); Neutrophil # 5.51 X10^3/uL (2.7-7.7); Neutrophil % 72.6 % (47-70); Platelet Count 152 K/mm3 (150-450); RBC Distribution Width CV 15.2 % (11.6-14.6); RBC Distribution Width SD 50.1 fl (35.1-43.9); Red Blood Count 3.31 M/mm3 (4.6-6.2); White Blood Count 7.6 K/mm3 (4.4-11.0)
[2020-07-20 08:50] VITALS: BMI 21.6
--- NOTE | 2020-07-20 08:58 | PN.ORTHO_ITS ---
Patient Problems: Active and Suspected Problems Closed right hip fracture (Acute) Subjective: Patient is postoperative day #1 from right hip press-fit hemiarthroplasty. He denies chest pain or shortness of breath. Denies significant pain. He states he is hungry still. Seemingly he just finished his breakfast. Objective: Right hip bandage on. There are several spots of dried bloody drainage. Does not contact 3 borders. No bleeding from around the edges of the bandage. Clinically hip is well aligned with equal leg lengths. He is able to plantarflex and dorsiflex toes and ankles bilaterally. He has no calf pain bilaterally. VALENCIA hose and SCDs are on. Distal pulses are intact. Sensation is intact. X-rays AP pelvis AP and lateral right hip shows a press-fit hemiarthroplasty in good position without obvious dislocation. There is a greater trochanteric fracture noted intraoperatively that remains in reasonable position. Femoral stem and bipolar head are in good position. Laboratory work and vital signs reviewed. Urine culture is negative thus far - Physical Exam Vitals/I&O's: Vital Signs Temp Pulse Resp BP Pulse Ox 98.9 F 92 18 140/60 H 98 07/20/20 01:56 07/20/20 01:56 07/20/20 01:56 07/20/20 01:56 07/20/20 01:56 Oxygen Flow Rate (L/min) 2 Oxygen Delivery Method Room Air Weight: 48.6 kg Body Mass Index (BMI) 21.6 Intake and Output for Last 24 Hours 07/18/20 07/19/20 07/20/20 23:59 23:59 23:59 Intake Total 3310 / 3310 1450 / 1450 Output Total 600 / 600 100 / 100 Balance 2710 / 2710 1350 / 1350 Microbiology Past 72 Hours 07/18/20 23:30 Urine, Clean Catch Urine Culture - Preliminary Culture exhibits no growth. 07/18/20 15:30 Mucosa - Nose SARS-CoV-2 Antigen (Rapid) - Final SARS-CoV-2 (COVID 19) Laboratory Results 07/19/20 07:48: Blood Type O POSITIVE, Antibody Screen NEGATIVE 07/20/20 06:32: WBC 7.6, RBC 3.31 L, Hgb 9.4 L, Hct 29.7 L, MCV 89.7, MCH 28.4, MCHC 31.6 L, RDW Std Deviation 50.1 H, RDW Coeff of Tabby 15.2 H, Plt Count 152, MPV 10.1, Immature Gran % (Auto) 0.100, Neut % (Auto) 72.6 H, Lymph % (Auto) 16.9 L, Boyd % (Auto) 10.0, Eos % (Auto) 0.3, Baso % (Auto) 0.1, Absolute Neuts (auto) 5.5, Absolute Lymphs (auto) 1.28, Nucleated RBC % 0 07/20/20 06:32: Sodium 143, Potassium 3.3 L, Chloride 113 H, Carbon Dioxide 25.0, Anion Gap 5, BUN 16, Creatinine 0.66 L, Estim Creat Clear Calc 48.60, Est GFR (MDRD) Af Amer 153, Est GFR (MDRD) Non-Af 127, BUN/Creatinine Ratio 24.2 H, Glucose 134 H, Calcium 7.7 L, Total Bilirubin 0.40, AST 26, ALT 13 L, Alkaline Phosphatase 53, Total Protein 5.9 L, Albumin 3.0 L, Globulin 2.9, Albumin/Globulin Ratio 1.0 Current Medications Acetaminophen (Acetaminophen 325 Mg Tablet) 650 mg PO Q6H PRN PRN PRN Reason: Pain Score 1-10/Temp > 100.7 F Last Admin: 07/18/20 18:14 Dose: 650 mg Documented by: Hydrocodone Bitart/Acetaminophen (Hydrocodone Bitartrate/Apap 5/325 Tablet) 2 tablet PO Q4H PRN PRN PRN Reason: Pain Score 1-5 Last Admin: 07/20/20 07:35 Dose: 2 tablet Documented by: Aspirin (Aspirin E.C. 81 Mg Tablet) [facility] Last Admin: 07/20/20 08:12 Dose: 81 mg Documented by: Atorvastatin Calcium (Atorvastatin Calcium 20 Mg Tablet) 20 mg PO QHS [facility] Last Admin: 07/19/20 22:15 Dose: 20 mg Documented by: Sodium Chloride () 1,000 mls @ 100 mls/hr IV .Q10H [facility] Last Admin: 07/20/20 00:34 Dose: 100 mls/hr Documented by: Sodium Chloride () 250 mls @ 15 mls/hr IV .[id number] PRN PRN Reason: Saline Flush Sodium Chloride () 250 mls @ 15 mls/hr IV .[id number] PRN PRN Reason: Additional IVPB Infusion Melatonin (Melatonin 3 Mg Tablet) 3 mg PO QHS PRN PRN PRN Reason: INSOMNIA Metoprolol Succinate (Metoprolol(Xl)Succ 25 Mg Tablet) 25 mg PO DAILY JUSTINA Last Admin: 07/19/20 12:57 Dose: Not Given Documented by: Morphine Sulfate (Morphine 2 Mg/Ml Syringe) 2 mg IV Q3H PRN PRN PRN Reason: Pain Score 6-10 Last Admin: 07/20/20 04:53 Dose: 2 mg Documented by: Ondansetron HCl (Ondansetron 4 Mg/2 Ml Vial) 4 mg IV Q8H PRN PRN PRN Reason: NAUSEA/VOMITING Sodium Chloride (0.9% Saline Lock 10 Ml Syringe) 10 - 40 ml IV UD PRN PRN Reason: SALINE FLUSH Last Admin: 07/20/20 04:53 Dose: 10 ml Documented by: Medical Necessity - Tobacco Use Smoking Status: Current every day smoker Tobacco Use: Cigarettes Assessment/Plan All Active Problems Closed right hip fracture (Acute) Right hip femoral neck fracture with greater trochanteric fracture postoperative day #1. Had Ancef for perioperative antibiotic. On aspirin 81 mg twice a day for DVT prevention. Continue with oral pain medication as needed. Okay for weightbearing as tolerated right hip. Follow right hip dislocation precautions with no hip flexion greater than 90 degrees, do not cross legs. Follow-up in orthopedic office in 12 to 14 days for x-rays, staple removal, evaluation. Continue on medical service, okay for discharge from orthopedic standpoint
[2020-07-20] MEDS: Acetaminophen 325 MG Tablet 650 MG PO (09:56)
--- NOTE | 2020-07-20 10:07 | PCM.PN.HOSP ---
Patient Problems: Active and Suspected Problems Closed right hip fracture (Acute) Reason for Visit: Follow-up on acute hip fracture Subjective: Patient was seen and examined. Denied any new complaints. No acute events overnight. Discharge planning to nursing home facility ongoing Objective: Physical exam: General: Alert, Cooperative, Confused HEENT: Atraumatic, PERRLA, Normocephalic, cataract and corneal opacity of the right eye Neck: Supple, No JVD, Negative Carotid Bruits Lungs: Clear to auscultation, Normal air movement Cardiovascular: Regular rate, No murmurs Abdomen: Bowel Sounds Present, Soft, Non Tender Extremities: No edema, Capillary Refill Less than 3 Seconds Skin: No rashes, No breakdown Musculoskeletal: No Tenderness to Palpation of Joints or Extremities Neurological: Cranial nerves II-XII grossly intact Psych/Mental Status: Normal Affect, Appropriate Vitals/I&O's: Vital Signs Temp Pulse Resp BP Pulse Ox 98.1 F 71 16 100/56 L 98 07/20/20 08:00 07/20/20 08:00 07/20/20 08:00 07/20/20 08:00 07/20/20 08:00 Oxygen Flow Rate (L/min) 2 Oxygen Delivery Method Room Air Weight: 48.6 kg Body Mass Index (BMI) 21.6 Intake and Output for Last 24 Hours 07/18/20 07/19/20 07/20/20 23:59 23:59 23:59 Intake Total 3310 / 3310 1450 / 1450 Output Total 600 / 600 100 / 100 Balance 2710 / 2710 1350 / 1350 Microbiology Past 72 Hours 07/18/20 23:30 Urine, Clean Catch Urine Culture - Preliminary Culture exhibits no growth. 07/18/20 15:30 Mucosa - Nose SARS-CoV-2 Antigen (Rapid) - Final SARS-CoV-2 (COVID 19) Laboratory Results 07/20/20 06:32: WBC 7.6, RBC 3.31 L, Hgb 9.4 L, Hct 29.7 L, MCV 89.7, MCH 28.4, MCHC 31.6 L, RDW Std Deviation 50.1 H, RDW Coeff of Tabby 15.2 H, Plt Count 152, MPV 10.1, Immature Gran % (Auto) 0.100, Neut % (Auto) 72.6 H, Lymph % (Auto) 16.9 L, [place] % (Auto) 10.0, Eos % (Auto) 0.3, Baso % (Auto) 0.1, Absolute Neuts (auto) 5.5, Absolute Lymphs (auto) 1.28, Nucleated RBC % 0 07/20/20 06:32: Sodium 143, Potassium 3.3 L, Chloride 113 H, Carbon Dioxide 25.0, Anion Gap 5, BUN 16, Creatinine 0.66 L, Estim Creat Clear Calc 48.60, Est GFR (MDRD) Af Amer 153, Est GFR (MDRD) Non-Af 127, BUN/Creatinine Ratio 24.2 H, Glucose 134 H, Calcium 7.7 L, Total Bilirubin 0.40, AST 26, ALT 13 L, Alkaline Phosphatase 53, Total Protein 5.9 L, Albumin 3.0 L, Globulin 2.9, Albumin/Globulin Ratio 1.0 Current Medications Acetaminophen (Acetaminophen 325 Mg Tablet) 650 mg PO Q6H PRN PRN PRN Reason: Pain Score 1-10/Temp > 100.7 F Last Admin: 07/20/20 09:56 Dose: 650 mg Documented by: Hydrocodone Bitart/Acetaminophen (Hydrocodone Bitartrate/Apap 5/325 Tablet) 2 tablet PO Q4H PRN PRN PRN Reason: Pain Score 1-5 Last Admin: 07/20/20 07:35 Dose: 2 tablet Documented by: Aspirin (Aspirin E.C. 81 Mg Tablet) [facility] Last Admin: 07/20/20 08:12 Dose: 81 mg Documented by: Atorvastatin Calcium (Atorvastatin Calcium 20 Mg Tablet) 20 mg PO QHS [facility] Last Admin: 07/19/20 22:15 Dose: 20 mg Documented by: Sodium Chloride () 1,000 mls @ 100 mls/hr IV .Q10H [facility] Last Admin: 07/20/20 00:34 Dose: 100 mls/hr Documented by: Sodium Chloride () 250 mls @ 15 mls/hr IV .[id number] PRN PRN Reason: Saline Flush Sodium Chloride () 250 mls @ 15 mls/hr IV .[id number] PRN PRN Reason: Additional IVPB Infusion Melatonin (Melatonin 3 Mg Tablet) 3 mg PO QHS PRN PRN PRN Reason: INSOMNIA Metoprolol Succinate (Metoprolol(Xl)Succ 25 Mg Tablet) 25 mg PO DAILY [facility] Last Admin: 07/19/20 12:57 Dose: Not Given Documented by: Morphine Sulfate (Morphine 2 Mg/Ml Syringe) 2 mg IV Q3H PRN PRN PRN Reason: Pain Score 6-10 Last Admin: 07/20/20 04:53 Dose: 2 mg Documented by: Ondansetron HCl (Ondansetron 4 Mg/2 Ml Vial) 4 mg IV Q8H PRN PRN PRN Reason: NAUSEA/VOMITING Potassium Chloride (Potassium Chloride 20 Meq Tablet) 40 meq PO X1 ONE Stop: 07/20/20 10:07 Sodium Chloride (0.9% Saline Lock 10 Ml Syringe) 10 - 40 ml IV UD PRN PRN Reason: SALINE FLUSH Last Admin: 07/20/20 04:53 Dose: 10 ml Documented by: STROKE Vital Signs/Narrative: Vital Signs Temp Pulse Resp BP Pulse Ox 07/20/20 08:00 98.1 F 71 16 100/56 L 98 Medical Necessity - Tobacco Use Smoking Status: Current every day smoker Tobacco Use: Cigarettes Assessment/Plan All Active Problems Closed right hip fracture (Acute) 1. POD#1 status post right hip open reduction internal fixation, intramedullary nail fixation for right hip displaced intertrochanteric fracture Pain is fairly controlled, continue on Vicodin, morphine as needed Surgical site recommendations per orthopedics Continue on PT/OT evaluations 2. Nicotine dependence, on replacement 3. DVT PPx- per orthopedics Inpatient E&M: 31985 Subs Hosp L2
[2020-07-20 10:20] LABS: Magnesium 1.9 mg/dL (1.6-2.6)
[2020-07-20 12:47] VITALS: BP 111/51; PULSE 76; RESP 17; TEMP 36.8; O2SAT 98
[2020-07-20 12:50] VITALS: BMI 21.6
[2020-07-20 12:53] VITALS: BP 115/51; PULSE 76
[2020-07-20] MEDS: Metoprolol(XL)Succ 25 MG Tablet PO (12:53)
[2020-07-20 16:50] VITALS: BMI 21.6
[2020-07-20 17:17] VITALS: BP 98/56; PULSE 92; RESP 16; TEMP 37.1; O2SAT 98
[2020-07-20] MEDS: Atorvastatin Calcium 20 MG Tablet PO (20:36)
[2020-07-20 20:39] VITALS: BP 121/64; PULSE 82; RESP 18; TEMP 37.2; O2SAT 98
[2020-07-21 02:55] VITALS: BP 138/60; PULSE 85; RESP 18; TEMP 36.7; O2SAT 96
[2020-07-21] MEDS: HYDROcodone Bitartrate/Apap 5/325 Tablet PO ×2 (02:56→11:04)
[2020-07-21] MEDS: 0.9% Normal Saline 1,000 ML 100 ML IV (05:54)
--- NOTE | 2020-07-21 07:51 | PCM.PN.HOSP ---
Patient Problems: Active and Suspected Problems Closed right hip fracture (Acute) Reason for Visit: Follow-up on acute hip fracture Subjective: Patient was seen and examined. Denied any new complaints. Patient speaks Arabic. Pain is controlled Objective: Physical exam: General: Alert, Cooperative, Confused HEENT: Atraumatic, PERRLA, Normocephalic, cataract and corneal opacity of the right eye Neck: Supple, No JVD, Negative Carotid Bruits Lungs: Clear to auscultation, Normal air movement Cardiovascular: Regular rate, No murmurs Abdomen: Bowel Sounds Present, Soft, Non Tender Extremities: No edema, Capillary Refill Less than 3 Seconds Skin: No rashes, No breakdown Musculoskeletal: No Tenderness to Palpation of Joints or Extremities Neurological: Cranial nerves II-XII grossly intact Psych/Mental Status: Normal Affect, Appropriate Vitals/I&O's: Vital Signs Temp Pulse Resp BP Pulse Ox 98.0 F 85 18 138/60 H 96 07/21/20 02:55 07/21/20 02:55 07/21/20 02:55 07/21/20 02:55 07/21/20 02:55 Oxygen Flow Rate (L/min) 2 Oxygen Delivery Method Room Air Weight: 48.6 kg Body Mass Index (BMI) 21.6 Intake and Output for Last 24 Hours 07/19/20 07/20/20 07/21/20 23:59 23:59 23:59 Intake Total 3310 / 3310 4110 / 4110 930 / 930 Output Total 600 / 600 375 / 375 350 / 350 Balance 2710 / 2710 3735 / 3735 580 / 580 Microbiology Past 72 Hours 07/18/20 23:30 Urine, Clean Catch Urine Culture - Final Culture exhibits no growth. 07/18/20 15:30 Mucosa - Nose SARS-CoV-2 Antigen (Rapid) - Final SARS-CoV-2 (COVID 19) Laboratory Results 07/20/20 06:32: WBC 7.6, RBC 3.31 L, Hgb 9.4 L, Hct 29.7 L, MCV 89.7, MCH 28.4, MCHC 31.6 L, RDW Std Deviation 50.1 H, RDW Coeff of Tabby 15.2 H, Plt Count 152, MPV 10.1, Immature Gran % (Auto) 0.100, Neut % (Auto) 72.6 H, Lymph % (Auto) 16.9 L, Dickens % (Auto) 10.0, Eos % (Auto) 0.3, Baso % (Auto) 0.1, Absolute Neuts (auto) 5.5, Absolute Lymphs (auto) 1.28, Nucleated RBC % 0 07/20/20 06:32: Sodium 143, Potassium 3.3 L, Chloride 113 H, Carbon Dioxide 25.0, Anion Gap 5, BUN 16, Creatinine 0.66 L, Estim Creat Clear Calc 48.60, Est GFR (MDRD) Af Amer 153, Est GFR (MDRD) Non-Af 127, BUN/Creatinine Ratio 24.2 H, Glucose 134 H, Calcium 7.7 L, Total Bilirubin 0.40, AST 26, ALT 13 L, Alkaline Phosphatase 53, Total Protein 5.9 L, Albumin 3.0 L, Globulin 2.9, Albumin/Globulin Ratio 1.0 07/20/20 06:32: Magnesium 1.9 Current Medications Acetaminophen (Acetaminophen 325 Mg Tablet) 650 mg PO Q6H PRN PRN PRN Reason: Pain Score 1-10/Temp > 100.7 F Last Admin: 07/20/20 09:56 Dose: 650 mg Documented by: Hydrocodone Bitart/Acetaminophen (Hydrocodone Bitartrate/Apap 5/325 Tablet) 2 tablet PO Q4H PRN PRN PRN Reason: Pain Score 1-5 Last Admin: 07/21/20 02:56 Dose: 2 tablet Documented by: Aspirin (Aspirin E.C. 81 Mg Tablet) [facility] Last Admin: 07/20/20 15:51 Dose: 81 mg Documented by: Atorvastatin Calcium (Atorvastatin Calcium 20 Mg Tablet) 20 mg PO QHS [facility] Last Admin: 07/20/20 20:36 Dose: 20 mg Documented by: Sodium Chloride () 1,000 mls @ 100 mls/hr IV .Q10H [facility] Last Admin: 07/21/20 05:54 Dose: 100 mls/hr Documented by: Sodium Chloride () 250 mls @ 15 mls/hr IV .[id number] PRN PRN Reason: Saline Flush Sodium Chloride () 250 mls @ 15 mls/hr IV .[id number] PRN PRN Reason: Additional IVPB Infusion Melatonin (Melatonin 3 Mg Tablet) 3 mg PO QHS PRN PRN PRN Reason: INSOMNIA Metoprolol Succinate (Metoprolol(Xl)Succ 25 Mg Tablet) 25 mg PO DAILY [facility] Last Admin: 07/20/20 12:53 Dose: 25 mg Documented by: Morphine Sulfate (Morphine 2 Mg/Ml Syringe) 2 mg IV Q3H PRN PRN PRN Reason: Pain Score 6-10 Last Admin: 07/20/20 04:53 Dose: 2 mg Documented by: Ondansetron HCl (Ondansetron 4 Mg/2 Ml Vial) 4 mg IV Q8H PRN PRN PRN Reason: NAUSEA/VOMITING Sodium Chloride (0.9% Saline Lock 10 Ml Syringe) 10 - 40 ml IV UD PRN PRN Reason: SALINE FLUSH Last Admin: 07/20/20 04:53 Dose: 10 ml Documented by: Medical Necessity - Tobacco Use Smoking Status: Current every day smoker Tobacco Use: Cigarettes Assessment/Plan All Active Problems Closed right hip fracture (Acute) 1. POD#2 status post right hip open reduction internal fixation, intramedullary nail fixation for right hip displaced intertrochanteric fracture Pain is fairly controlled, continue on Vicodin, morphine as needed Surgical site recommendations per orthopedics Continue on PT/OT evaluations 2. Hypokalemia, replaced, recheck in a.m. 3. Hypertension, controlled, continue metoprolol 4. Anemia, likely postop dilution vs acute blood loss from surgery Hemoglobin is 9.4, dropped from 12.6 We will recheck H&H 5. Nicotine dependence, on replacement 6. DVT PPx- per orthopedics Inpatient E&M: 57157 Subs Hosp L2
[2020-07-21 08:19] VITALS: BP 132/66; PULSE 84
[2020-07-21] MEDS: Aspirin E.C. 81 MG Tablet PO ×2 (08:19→16:35)
[2020-07-21] MEDS: Acetaminophen 325 MG Tablet 650 MG PO (08:19)
[2020-07-21] MEDS: Metoprolol(XL)Succ 25 MG Tablet PO (08:19)
[2020-07-21 08:22] VITALS: BP 132/66; PULSE 84; RESP 18; TEMP 37.1; O2SAT 98
[2020-07-21 14:59] VITALS: BP 142/68; PULSE 80; RESP 18; TEMP 37.7; O2SAT 100
[2020-07-21 15:32] LABS: Hematocrit 30.3 % (40-54); Hemoglobin 9.4 g/dL (13.0-16.5)
[2020-07-21] MEDS: 0.9% Saline Lock 10 ML Syringe IV (15:49)
--- NOTE | 2020-07-21 16:15 | RAD_ITS ---
STUDY: X-RAY CHEST REASON FOR EXAM: Male, 69 years old. Shortness of breath TECHNIQUE: Frontal view of the chest COMPARISON: 07/18/20 FINDINGS: The lungs are clear. There are no pleural effusions. There is no pneumothorax. The heart is normal in size. The visualized osseous structures are within normal limits. RAD/Chest 1 View (Portable) IMPRESSION: No acute thoracic pathology. Electronically Signed: José Miguel Bernardo, at 16:59 EST Tel , Service support ,
[2020-07-21] MEDS: oxyCODONE 5 MG Tablet PO (16:30)
[2020-07-21 17:41] VITALS: BP 138/86; PULSE 90; RESP 18; TEMP 37.6; O2SAT 100
[2020-07-21] MEDS: Acetaminophen 500 MG Tablet 1000 MG PO (20:48)
[2020-07-21] MEDS: Atorvastatin Calcium 20 MG Tablet PO (20:48)
[2020-07-21 20:51] VITALS: BP 154/73; PULSE 84; RESP 18; TEMP 37.7; O2SAT 97
[2020-07-22] VITALS (7 sets, daily range): BP systolic 142–151; BP diastolic 73–85; PULSE 72–101; RESP 16–18; TEMP 36.7–37.2; O2SAT 97–100
[2020-07-22] MEDS: Acetaminophen 500 MG Tablet 1000 MG PO ×3 (05:17→20:39)
[2020-07-22 05:55] LABS: Absolute Lymphocyte Count 2.01 X10^3/uL (0.83-4.51); Absolute Neutrophil Count 6.1 X10^3/uL (2.0-7.7); Basophil# 0.01 X10^3/uL; Basophil% 0.1 % (0-1); Eosinophil# 0.13 X10^3/uL; Eosinophils% 1.5 % (0-5); Hemoglobin 8.3 g/dL (13.0-16.5); Lymphocyte # 2.01 X10^3/ul (4.0); Lymphocyte % 22.8 % (19-41); Mean Corp Hgb Conc 31.9 g/dL (32-36); Mean Corpuscular Hgb 28.6 pg (27.0-32.0); Mean Corpuscular Volume 89.7 fL (80-94); Monocyte# 0.52 X10^3/uL; Monocyte% 5.9 % (0-10); NRBC Flagged by Analyzer 0 % (0-5); Neutrophil % 69.4 % (47-70); Platelet Count 176 K/mm3 (150-450); RBC Distribution Width CV 15.7 % (11.6-14.6); RBC Distribution Width SD 52.3 fl (35.1-43.9); White Blood Count 8.8 K/mm3 (4.4-11.0)
[2020-07-22 06:32] LABS: ALB/GLOB Ratio 0.7 RATIO (0.9-2.4); AST(SGOT) 32 U/L (15-37); Alanine Aminotransfer ALT/SGPT 17 U/L (16-61); Albumin, Serum 2.6 g/dL (3.2-5.0); Alkaline Phosphatase 58 U/L (45-117); Anion Gap 2 (5-15); BUN 7 mg/dL (7-18); BUN/Creat Ratio 14.9 RATIO (10-20); Calcium,Total 8.1 mg/dL (8.5-10.1); Chloride 111 mmol/L (98-107); Creatinine, Serum 0.47 mg/dL (0.70-1.30); EST Glomerular Filtration Rate 188 mL/min (>60); Est Glom Filt Rate - Afr Amer 227 mL/min (>60); Globulin 3.5 g/dL (2.2-4.2); Glucose 97 mg/dL (74-106); Potassium 3.7 mmol/L (3.5-5.1); Protein, Total 6.1 g/dL (6.4-8.2); Sodium Level 141 mmol/L (136-145)
--- NOTE | 2020-07-22 07:45 | PCM.TXEXTCAR ---
- Diet 07/19/20 08:23 Diet: Regular - General Is pt able to select menu?: No - Routine Orders/Code Status Keep PO Greater than or Equal to (%): 94 - Encourage use of incentive spirometer Routine Lab Work: CBC - within 3 days, BMP - within 3 days Code Status: Full Code - Wound(s) right hip Wound Type: Surgical Incision - Therapies Weight Bearing: Weight bearing as tolerated Extremity Affected:: Right Lower Physical Therapy: Eval and Treat Occupational Therapy: Eval and Treat - Allergies/Procedures Done in Hospital Allergies/Adverse Reactions: Allergies No Known Allergies Allergy (Verified 07/18/20 13:27) Procedures: - - Right hip open reduction internal fixation, intramedullary nail fixation, locked - Type of Care/Length of Stay Estimated LOS: Convalescent Care Less Than 30 days Type of Care Needed: Skilled Rehab Potential: Good Prognosis: Good - Additional Orders/Day of Discharge Additional Orders: Okay for weightbearing as tolerated right hip. Follow right hip dislocation precautions with no hip flexion greater than 90 degrees, do not cross legs. Follow-up in orthopedic office in 12 to 14 days for x-rays, staple removal, evaluation. Day of Discharge: 07/22/20 - Follow Up Care Primary Care Physician: NOT,DEFINED [NON-STAFF] - Please Follow Up With: Darrell Reyes MD When: in 2 weeks
[2020-07-22 07:49] LABS: Iron 12 ug/dL (65-175); Iron Binding Capacity,Total 215 ug/dL (250-450); PERCENT IRON SATURATION 5.6 % (15.0-55.0)
[2020-07-22] MEDS: Aspirin E.C. 81 MG Tablet PO ×2 (08:17→16:33)
[2020-07-22] MEDS: Metoprolol(XL)Succ 25 MG Tablet PO (09:40)
[2020-07-22] MEDS: oxyCODONE 5 MG Tablet PO ×3 (09:40→20:40)
--- NOTE | 2020-07-22 10:32 | CASEMGMT ---
Addendum entered by Kiki Cota 07/22/20 11:22: SW hasn't received call from [facility] at this time. SW in to speak with pt. SW introduced self and role at [facility]. Pt is alert to name, states today is Wednesday not alert to place, unable to name Hospital pt is currently at. Pt confirms pt is from [facility], states he has been there for a few months. SW spoke with pt regarding recommendation for short term therapy at SNF before discharge back to [facility]. Pt states never been to a SNF, agreeable to SNF. SW provided pt with list of SNF that accept pt's insurance. Pt states he can read little bit of Turk[place]. SW verbally reviewed list of SNF with pt. Pt states not sure which SNF he would want to go to. SW asked pt if this worker could call [facility] to determine if they have preference and asked if this worker could call pt's LAM Schultz regarding SNF placement. Pt states do whatever you need to do. SW informed pt that this worker just wanted to talk to pt first regarding plans. Pt states understanding. Original Note: Social Work Note SW placed a call to [facility] and left message for staff to return this worker's call. SW waiting for call back. SW inquiring whether pt will be able to return to [facility] with therapy or if pt will need SNF. Per PT, pt is min/mod assist for transfers/bed mobility and ambulated 8 feet min assist. ARIELLA waiting for call back from [facility]. Kiki Cota AUTO FLEET MANAGER, WEB PAGE DESIGNER
--- NOTE | 2020-07-22 12:03 | PCM.DC.SUM ---
Discharge Date and Diagnosis - Problem List Patient Problems: Active and Suspected Problems Closed right hip fracture (Acute) Date of Admission: 07/18/20 Date of Discharge: 07/22/20 - Primary Discharge Diagnosis Acute Problems: Active Problems Closed right hip fracture (Acute) Hospital Course and Treatment Summary of Care Provided: The patient is a 69 year old M [] Patient Problems: Active and Suspected Problems Closed right hip fracture (Acute) - Physical Exam Vitals/I&O's: Vital Signs Temp Pulse Resp BP Pulse Ox 98.6 F 88 16 142/85 H 97 07/22/20 08:14 07/22/20 09:40 07/22/20 08:14 07/22/20 08:14 07/22/20 08:14 Oxygen Flow Rate (L/min) 2 Oxygen Delivery Method Room Air Weight: 48.6 kg Body Mass Index (BMI) 21.6 Intake and Output for Last 24 Hours 07/20/20 07/21/20 07/22/20 23:59 23:59 23:59 Intake Total 4110 / 4110 2830 / 2830 Output Total 375 / 375 875 / 875 950 / 950 Balance 3735 / 3735 1955 / 1955 -950 / -950 Microbiology Past 72 Hours 07/18/20 23:30 Urine, Clean Catch Urine Culture - Final Culture exhibits no growth. Laboratory Results 07/21/20 15:26: Hgb 9.4 L, Hct 30.3 L 07/22/20 05:25: WBC 8.8, RBC 2.90 L, Hgb 8.3 L, Hct 26.0 L, MCV 89.7, MCH 28.6, MCHC 31.9 L, RDW Std Deviation 52.3 H, RDW Coeff of Tabby 15.7 H, Plt Count 176, MPV 10.0, Immature Gran % (Auto) 0.300, Neut % (Auto) 69.4, Lymph % (Auto) 22.8, [place] % (Auto) 5.9, Eos % (Auto) 1.5, Baso % (Auto) 0.1, Absolute Neuts (auto) 6.1, Absolute Lymphs (auto) 2.01, Nucleated RBC % 0 07/22/20 05:25: Sodium 141, Potassium 3.7, Chloride 111 H, Carbon Dioxide 28.0, Anion Gap 2 L, BUN 7, Creatinine 0.47 L, Estim Creat Clear Calc 48.60, Est GFR (MDRD) Af Amer 227, Est GFR (MDRD) Non-Af 188, BUN/Creatinine Ratio 14.9, Glucose 97, Calcium 8.1 L, Total Bilirubin 0.60, AST 32, ALT 17, Alkaline Phosphatase 58, Total Protein 6.1 L, Albumin 2.6 L, Globulin 3.5, Albumin/Globulin Ratio 0.7 L 07/22/20 05:25: Iron 12 L, TIBC 215 L, Iron Saturation 5.6 L Current Medications Acetaminophen (Acetaminophen 500 Mg Tablet) 1,000 mg PO TID [facility] Last Admin: 07/22/20 05:17 Dose: 1,000 mg Documented by: Aspirin (Aspirin E.C. 81 Mg Tablet) 81 mg PO BIDCM [facility] Last Admin: 07/22/20 08:17 Dose: 81 mg Documented by: Atorvastatin Calcium (Atorvastatin Calcium 20 Mg Tablet) 20 mg PO QHS [facility] Last Admin: 07/21/20 20:48 Dose: 20 mg Documented by: Sodium Chloride () 250 mls @ 15 mls/hr IV .[id number] PRN PRN Reason: Saline Flush Sodium Chloride () 250 mls @ 15 mls/hr IV .[id number] PRN PRN Reason: Additional IVPB Infusion Melatonin (Melatonin 3 Mg Tablet) 3 mg PO QHS PRN PRN PRN Reason: INSOMNIA Metoprolol Succinate (Metoprolol(Xl)Succ 25 Mg Tablet) 25 mg PO DAILY [facility] Last Admin: 07/22/20 09:40 Dose: 25 mg Documented by: Morphine Sulfate (Morphine 2 Mg/Ml Syringe) 2 mg IV Q3H PRN PRN PRN Reason: Pain Score 6-10 Last Admin: 07/20/20 04:53 Dose: 2 mg Documented by: Nicotine (Nicotine 14 Mg Patch) 14 mg TD DAILY [facility] Last Admin: 07/22/20 09:41 Dose: 14 mg Documented by: Ondansetron HCl (Ondansetron 4 Mg/2 Ml Vial) 4 mg IV Q8H PRN PRN PRN Reason: NAUSEA/VOMITING Oxycodone HCl (Oxycodone 5 Mg Tablet) 5 - 10 mg PO Q4H PRN PRN PRN Reason: Pain Score 6-10 Last Admin: 11/30/20 09:40 Dose: 5 mg Documented by: Sodium Chloride (0.9% Saline Lock 10 Ml Syringe) 10 - 40 ml IV UD PRN PRN Reason: SALINE FLUSH Last Admin: 07/21/20 15:49 Dose: 10 ml Documented by: Home Medications: Medications to take at Discharge Acetaminophen 2 tab PO BID PRN 07/18/20 Aspirin [Aspirin, Baby] 81 mg PO DAILY@0800 07/18/20 Metoprolol Succinate [Toprol Xl] 25 mg PO DAILY 07/18/20 Simvastatin 40 mg PO QHS 07/18/20 Primary Care Physician: NOT,DEFINED [NON-STAFF] - Please Follow Up With: Darrell Reyes MD When: in 2 weeks Medical Necessity - Tobacco Use Smoking Status: Current every day smoker Tobacco Use: Cigarettes
--- NOTE | 2020-07-22 12:15 | CASEMGMT ---
Addendum entered by Kiki Cota 07/22/20 16:50: ARIELLA placed a call to Claudia at [facility]. Claudia confirms at this time, they are not taking any new admissions unless they are COVID+. ARIELLA placed a call to Nelida and updated Nelida that [facility] is not able to accept pt. Nelida asked about pt staying at [facility] for rehabilitation. ARIELLA explained that this worker will need to check on bed availability. ARIELLA placed a call to Teagan with referral line. ARIELLA provided referral for [facility] vs [facility]. ARIELLA received call from Teagan stating [facility] is not able to accept pt and [facility] doesn't have any beds available. ARIELLA will follow up with pt, Nelida and Marion tomorrow to continue discussion of discharge plans. Plan: SNF pending acceptance Original Note: Social Work Note SW received call from Nelida at [facility]. Nelida states she spoke with Marion and prefers referral for SNF be sent to [facility]. ARIELLA placed a call to [facility] and spoke with Claudia in admissions. Claudia states she is willing to review referral but is waiting to hear from administration whether [facility] is taking any referrals at this time due to COVID outbreak. ARIELLA faxed referral to [facility]. Plan: SNF pending acceptance Kiki Cota ACID WASH OPERATOR, QUALITATIVE RESEARCHER
--- NOTE | 2020-07-22 14:58 | CHAPLAIN ---
Type of Pastoral Visit ___ Initial Visit ___ Follow-up Visit ___ On-call Visit ___ General Patient Visit ___ Spiritual Assessment ___ Family Conference ___ Bereavement ___ Rapid Response ___ Code Blue _x__ Other (describe below) Pastoral Care Referral From ___ Patient ___ Family ___ Nurse ___ Physician ___ Junk Dealer ___ Park Manager ___ Other (describe below) Sacrament/Intervention ___ Active listening ___ Anointing ___ Anglican ___ Bereavement ___ Communion ___ Sara exploration ___ ___ Life review ___ Prayer ___ Reconciliation ___ Sacrament of Sick ___ Supportive presence ___ Wedding ___ Other (describe below) Pastoral Comments patient is sleeping; left pt a calling card
--- NOTE | 2020-07-22 17:13 | PCM.PN.HOSP ---
Patient Problems: Active and Suspected Problems Closed right hip fracture (Acute) Reason for Visit: Follow-up on acute hip fracture Subjective: Patient was seen and examined. No acute events overnight. Denied any new complaint. Awaiting discharge to [facility] facility. Objective: Physical exam: General: Alert, Cooperative, Confused HEENT: Atraumatic, PERRLA, Normocephalic, cataract and corneal opacity of the right eye Neck: Supple, No JVD, Negative Carotid Bruits Lungs: Clear to auscultation, Normal air movement Cardiovascular: Regular rate, No murmurs Abdomen: Bowel Sounds Present, Soft, Non Tender Extremities: No edema, Capillary Refill Less than 3 Seconds Skin: No rashes, No breakdown Musculoskeletal: No Tenderness to Palpation of Joints or Extremities Neurological: Cranial nerves II-XII grossly intact Psych/Mental Status: Normal Affect, Appropriate Vitals/I&O's: Vital Signs Temp Pulse Resp BP Pulse Ox 98.7 F 73 16 147/78 H 100 07/22/20 14:05 07/22/20 14:05 07/22/20 14:05 07/22/20 14:05 07/22/20 14:05 Oxygen Flow Rate (L/min) 2 Oxygen Delivery Method Room Air Weight: 48.6 kg Body Mass Index (BMI) 21.6 Intake and Output for Last 24 Hours 07/20/20 07/21/20 07/22/20 23:59 23:59 23:59 Intake Total 4110 / 4110 2830 / 2830 360 / 360 Output Total 375 / 375 875 / 875 1450 / 1450 Balance 3735 / 3735 1955 / 1955 -1090 / -1090 Microbiology Past 72 Hours 07/18/20 23:30 Urine, Clean Catch Urine Culture - Final Culture exhibits no growth. Laboratory Results 07/22/20 05:25: WBC 8.8, RBC 2.90 L, Hgb 8.3 L, Hct 26.0 L, MCV 89.7, MCH 28.6, MCHC 31.9 L, RDW Std Deviation 52.3 H, RDW Coeff of Tabby 15.7 H, Plt Count 176, MPV 10.0, Immature Gran % (Auto) 0.300, Neut % (Auto) 69.4, Lymph % (Auto) 22.8, [place] % (Auto) 5.9, Eos % (Auto) 1.5, Baso % (Auto) 0.1, Absolute Neuts (auto) 6.1, Absolute Lymphs (auto) 2.01, Nucleated RBC % 0 07/22/20 05:25: Sodium 141, Potassium 3.7, Chloride 111 H, Carbon Dioxide 28.0, Anion Gap 2 L, BUN 7, Creatinine 0.47 L, Estim Creat Clear Calc 48.60, Est GFR (MDRD) Af Amer 227, Est GFR (MDRD) Non-Af 188, BUN/Creatinine Ratio 14.9, Glucose 97, Calcium 8.1 L, Total Bilirubin 0.60, AST 32, ALT 17, Alkaline Phosphatase 58, Total Protein 6.1 L, Albumin 2.6 L, Globulin 3.5, Albumin/Globulin Ratio 0.7 L 07/22/20 05:25: Iron 12 L, TIBC 215 L, Iron Saturation 5.6 L Current Medications Acetaminophen (Acetaminophen 500 Mg Tablet) 1,000 mg PO TID [facility] Last Admin: 07/22/20 14:04 Dose: 1,000 mg Documented by: Aspirin (Aspirin E.C. 81 Mg Tablet) 81 mg PO BIDCM [facility] Last Admin: 07/22/20 16:33 Dose: 81 mg Documented by: Atorvastatin Calcium (Atorvastatin Calcium 20 Mg Tablet) 20 mg PO QHS [facility] Last Admin: 07/21/20 20:48 Dose: 20 mg Documented by: Sodium Chloride () 250 mls @ 15 mls/hr IV .[id number] PRN PRN Reason: Saline Flush Sodium Chloride () 250 mls @ 15 mls/hr IV .[id number] PRN PRN Reason: Additional IVPB Infusion Melatonin (Melatonin 3 Mg Tablet) 3 mg PO QHS PRN PRN PRN Reason: INSOMNIA Metoprolol Succinate (Metoprolol(Xl)Succ 25 Mg Tablet) 25 mg PO DAILY [facility] Last Admin: 07/22/20 09:40 Dose: 25 mg Documented by: Morphine Sulfate (Morphine 2 Mg/Ml Syringe) 2 mg IV Q3H PRN PRN PRN Reason: Pain Score 6-10 Last Admin: 07/20/20 04:53 Dose: 2 mg Documented by: Nicotine (Nicotine 14 Mg Patch) 14 mg TD DAILY [facility] Last Admin: 07/22/20 09:41 Dose: 14 mg Documented by: Ondansetron HCl (Ondansetron 4 Mg/2 Ml Vial) 4 mg IV Q8H PRN PRN PRN Reason: NAUSEA/VOMITING Oxycodone HCl (Oxycodone 5 Mg Tablet) 5 - 10 mg PO Q4H PRN PRN PRN Reason: Pain Score 6-10 Last Admin: 07/22/20 16:33 Dose: 5 mg Documented by: Sodium Chloride (0.9% Saline Lock 10 Ml Syringe) 10 - 40 ml IV UD PRN PRN Reason: SALINE FLUSH Last Admin: 07/21/20 15:49 Dose: 10 ml Documented by: STROKE Vital Signs/Narrative: Vital Signs Temp Pulse Resp BP Pulse Ox 07/22/20 14:05 98.7 F 73 16 147/78 H 100 Medical Necessity - Tobacco Use Smoking Status: Current every day smoker Tobacco Use: Cigarettes Assessment/Plan All Active Problems Closed right hip fracture (Acute) 1. POD#3 status post right hip open reduction internal fixation, intramedullary nail fixation for right hip displaced intertrochanteric fracture Pain is fairly controlled, continue on scheduled tylenol, oxycodone, morphine as needed Surgical site recommendations per orthopedics Continue on PT/OT evaluations 2. Hypokalemia, replaced, recheck in a.m. 3. Hypertension, controlled, continue metoprolol 4. Anemia, iron deficiency, likely postop dilution vs acute blood loss from surgery Hemoglobin is 8.3, dropped from 12.6 Give Venofer 200 mg IV daily Check FOBT 5. Nicotine dependence, on replacement 6. DVT PPx- per orthopedics Inpatient E&M: 21435 Subs Hosp L2
[2020-07-22] MEDS: Atorvastatin Calcium 20 MG Tablet PO (20:40)
[2020-07-23] MEDS: oxyCODONE 5 MG Tablet PO ×4 (01:31→17:17)
[2020-07-23 02:05] VITALS: BP 144/87; PULSE 70; RESP 16; TEMP 37.1; O2SAT 97
[2020-07-23] MEDS: Acetaminophen 500 MG Tablet 1000 MG PO ×3 (05:43→20:38)
[2020-07-23 06:15] LABS: Absolute Lymphocyte Count 2.08 X10^3/uL (0.83-4.51); Absolute Neutrophil Count 4.3 X10^3/uL (2.0-7.7); Basophil# 0.01 X10^3/uL; Basophil% 0.1 % (0-1); Eosinophil# 0.13 X10^3/uL; Eosinophils% 1.9 % (0-5); Hematocrit 28.4 % (40-54); Hemoglobin 8.9 g/dL (13.0-16.5); Lymphocyte # 2.08 X10^3/ul (4.0); Lymphocyte % 29.8 % (19-41); Mean Corp Hgb Conc 31.3 g/dL (32-36); Mean Corpuscular Hgb 28.4 pg (27.0-32.0); Mean Corpuscular Volume 90.7 fL (80-94); Mean Platelet Vol. 9.9 fl (6.2-12.0); Monocyte# 0.47 X10^3/uL; Monocyte% 6.7 % (0-10); NRBC Flagged by Analyzer 0 % (0-5); Neutrophil # 4.25 X10^3/uL (2.7-7.7); Neutrophil % 61.1 % (47-70); Platelet Count 241 K/mm3 (150-450); RBC Distribution Width CV 15.7 % (11.6-14.6); RBC Distribution Width SD 52.5 fl (35.1-43.9); Red Blood Count 3.13 M/mm3 (4.6-6.2)
[2020-07-23 06:41] LABS: ALB/GLOB Ratio 0.6 RATIO (0.9-2.4); AST(SGOT) 43 U/L (15-37); Alanine Aminotransfer ALT/SGPT 25 U/L (16-61); Albumin, Serum 2.4 g/dL (3.2-5.0); Alkaline Phosphatase 59 U/L (45-117); Anion Gap 4 (5-15); BUN 12 mg/dL (7-18); BUN/Creat Ratio 22.9 RATIO (10-20); Chloride 108 mmol/L (98-107); Creatinine, Serum 0.52 mg/dL (0.70-1.30); EST Glomerular Filtration Rate 166 mL/min (>60); Est Glom Filt Rate - Afr Amer 200 mL/min (>60); Globulin 3.9 g/dL (2.2-4.2); Glucose 87 mg/dL (74-106); Potassium 3.7 mmol/L (3.5-5.1); Protein, Total 6.3 g/dL (6.4-8.2); Sodium Level 139 mmol/L (136-145)
[2020-07-23 08:08] VITALS: BP 137/76; PULSE 67; RESP 18; TEMP 37; O2SAT 95
[2020-07-23 08:21] VITALS: PULSE 67
[2020-07-23] MEDS: Metoprolol(XL)Succ 25 MG Tablet PO (08:21)
[2020-07-23] MEDS: Aspirin E.C. 81 MG Tablet PO ×2 (08:22→17:37)
--- NOTE | 2020-07-23 09:14 | CASEMGMT ---
Addendum entered by Kiki Cota 07/23/20 10:37: ARIELLA received call from Nelida at [facility]. Nelida states she spoke with the automotive parts coordinator of the [facility] who feels pt would benefit more from SNF and pt wouldn't be safe to return to [facility] at this time due to fall risk and no RN being available. Nelida asked about [facility] in [place]. ARIELLA informed Nelida that typically [facility] is pretty full but this worker can call and check on bed availability. ARIELLA asked Nelida if [facility] is not able to accept pt, what would be the next options and Nelida states whatever you think. ARIELLA explained that this worker cannot make decisions for pt but this worker could call around [place] areas to SNF to determine if any would be willing to review referral. Nelida agreeable to plan. ARIELLA also placed a call to pt's LAM Schultz at [facility] and left message to continue discussion of discharge plans for pt. ARIELLA placed a call to [facility] and left message for Ifrah in admissions regarding referral. ARIELLA waiting for call back. Plan: SNF pending acceptance Original Note: Social Work Note ARIELLA placed a call to [facility] and left message regarding pt. ARIELLA asked if pt would be able to return to [facility] or if pt will need to go SNF as this worker is having some difficulty finding SNF for pt and pt refused PT/OT yesterday. ARIELLA waiting for call back. Kiki Cota GEOGRAPHIC INFORMATION SYSTEMS MANAGER, METER SUPERVISOR
[2020-07-23] MEDS: Sodium Ferric Gluconat 250 MG in 0.9% Normal Saline 250 ML 135 MG IV (10:38)
[2020-07-23] MEDS: 0.9% Saline Lock 10 ML Syringe IV (10:38)
--- NOTE | 2020-07-23 11:42 | CASEMGMT ---
Addendum entered by Kiki Cota 07/23/20 14:52: SW received call from Zahira at [facility] stating she would be willing to review referral for [place]. Zahira states [facility] now has COVID cases and they are currently on bed lock, not taking admissions. ARIELLA updated Zahira that pt is medically ready once pt is accepted to SNF. Zahira states understanding. SW faxed referral to Zahira for [place]. Addendum entered by Kiki Cota 07/23/20 13:50: SW received message from Zabrina at [facility] stating they would review referral and to fax referral. ARIELLA Faxed referral to [facility]. Original Note: Social Work Note SW placed a call to Ifrah at [facility], Ifrah states no beds available. ARIELLA placed a call to Zahira at [facility] [facility] and left message asking if she would consider reviewing referral. ARIELLA placed a call to [facility] and left message for admissions asking if they would review referral. SW waiting for call back from facilities. ARIELLA received message from pt's LAM Schultz stating a better number to call her at is [phone]. Plan: SNF pending acceptance Kiki Cota ELECTROMECHANIC, HAIRSPRING I INSPECTOR
--- NOTE | 2020-07-23 13:54 | CHAPLAIN ---
Type of Pastoral Visit _x__ Initial Visit ___ Follow-up Visit ___ On-call Visit ___ General Patient Visit ___ Spiritual Assessment ___ Family Conference ___ Bereavement ___ Rapid Response ___ Code Blue ___ Other (describe below) Pastoral Care Referral From _x__ Patient ___ Family ___ Nurse ___ Physician ___ Cafe Operator ___ Nicker ___ Other (describe below) Sacrament/Intervention ___ Active listening ___ Anointing ___ Scientology ___ Bereavement ___ Communion ___ Sara exploration ___ ___ Life review _x__ Prayer ___ Reconciliation ___ Sacrament of Sick _x__ Supportive presence ___ Wedding ___ Other (describe below) Pastoral Comments introduced self and role to patient and kept the conversation simple; pt is able to respond appropriately on a few questions and did not answer others; offered prayer; pt continued at this time to keep his eyes closed
[2020-07-23 14:06] VITALS: BP 149/86; PULSE 75; PULSE 80; RESP 16; TEMP 37.2; O2SAT 97
--- NOTE | 2020-07-23 16:12 | CASEMGMT ---
Social Work Note ARIELLA received call from Roxanna at [facility] stating they are able to accept pt today. ARIELLA placed a call to [facility] and asked to speak with Nelida but Nikolas answered. Nikolas was previously spoken too as well regarding pt in previous notes. ARIELLA updated Nikolas that recommendation is SNF and that [facility] is able to accept pt. Nikolas states Nelida had mentioned [facility]. ARIELLA informed Nikolas that this worker did call [facility] and they are not taking any admissions at this time. ARIELLA updated Nikolas that Nelida gave this worker permission to try and SNF in [facility] and [facility] is first SNF that is able to accept pt and pt is medically ready for discharge today. Nikolas agreeable to [facility] stating they've had residents before go to [facility]. ARIELLA placed a call to pt's LAM Schultz and left message that pt will be discharged to [facility] today. SW in to speak with pt. ARIELLA updated pt that [facility] is able to accept pt. ARIELLA updated pt that the longterm is stating pt is not able to return at this time due to pt needing more assistance than what the longterm can provide. ARIELLA updated pt that recommendation is [facility] and at this time, [facility] is able to accept pt and pt is medically ready for discharge. Pt states wherever will take me. ARIELLA updated physician that pt can discharge to SNF today. Plan: [facility] Kiki Cota CELEBRITY CHEF ENTREPRENEUR MEDIA PERSONALITY, BUFFERER
--- NOTE | 2020-07-23 16:37 | DS.PCM_ITS ---
Discharge Date and Diagnosis - Problem List Patient Problems: Active and Suspected Problems Closed right hip fracture (Acute) Date of Admission: 07/18/20 Date of Discharge: 07/23/20 - Primary Discharge Diagnosis Acute Problems: Active Problems Closed right hip fracture (Acute) Hospital Course and Treatment ORTHO Operations: - - Right hip open reduction internal fixation, intramedullary nail fixation, locked Summary of Care Provided: The patient is a 69 year old M who presented to the ER from [facility]. He was confused on admission but it was reported that he fell while walking up steps. He stated he did not feel ill in any other way. An Xray in the ER revealed R femoral neck fx with displacement. He was taken to the OR on 07/19 for a Right hip open reduction internal fixation, intramedullary nail fixation, locked. He is okay for weightbearing as tolerated right hip. He is to follow right hip dislocation precautions with no hip flexion greater than 90 degrees and he is not to not cross his legs. He is to follow-up in orthopedic office in 12 to 14 days for x-rays, staple removal, evaluation. His hgb was a bit low following surgery but stable and will need a f/u CBC at the end of this week. He was not able to go back to [facility] based on his needs at d/ and was accepted on 07/23 to [facility] for further care at d/. Discharge Time > 30 min Patient Problems: Active and Suspected Problems Closed right hip fracture (Acute) - Physical Exam Vitals/I&O's: Vital Signs Temp Pulse Resp BP Pulse Ox 98.9 F 80 16 149/86 H 97 07/23/20 14:06 07/23/20 14:06 07/23/20 14:06 07/23/20 14:06 07/23/20 14:06 Oxygen Flow Rate (L/min) 2 Oxygen Delivery Method Room Air Weight: 48.6 kg Body Mass Index (BMI) 21.6 Intake and Output for Last 24 Hours 07/21/20 07/22/20 07/23/20 23:59 23:59 23:59 Intake Total 2830 / 2830 560 / 760 672 / 672 Output Total 875 / 875 1550 / 1800 525 / 525 Balance 1955 / 1954 -990 / -1040 147 / 147 General: Alert, Cooperative, Well developed, Well nourished HEENT: Atraumatic, Normocephalic Oral: Moist Mucosa Neck: Supple, Trachea Midline Lungs: Clear to auscultation, Normal air movement, No rhonchi, No wheeze, No rales Cardiovascular: Regular rate, Regular Rhythm, Normal S1, Normal S2, No murmurs, No rub noted, No Gallop Abdomen: Bowel Sounds Present, Soft, Non Tender, Non-Distended, No Hepato- splenomegaly Extremities: No clubbing, No cyanosis, No edema, Capillary Refill Less than 3 Seconds, Peripheral Pulses Normal, - - R leg in flexion Skin: No rashes, - - some drainage on post op bandage but not saturated Musculoskeletal: No Tenderness to Palpation of Joints or Extremities, Muscle Wasting, Tenderness - L hip Neurological: Cranial nerves II-XII grossly intact, Neuro grossly intact Psych/Mental Status: Appropriate, Flat Affect Microbiology Past 72 Hours 07/18/20 23:30 Urine, Clean Catch Urine Culture - Final Culture exhibits no growth. Laboratory Results 07/23/20 05:48: WBC 7.0, RBC 3.13 L, Hgb 8.9 L, Hct 28.4 L, MCV 90.7, MCH 28.4, MCHC 31.3 L, RDW Std Deviation 52.5 H, RDW Coeff of Tabby 15.7 H, Plt Count 241, MPV 9.9, Immature Gran % (Auto) 0.400, Neut % (Auto) 61.1, Lymph % (Auto) 29.8, Powell % (Auto) 6.7, Eos % (Auto) 1.9, Baso % (Auto) 0.1, Absolute Neuts (auto) 4.3, Absolute Lymphs (auto) 2.08, Nucleated RBC % 0 07/23/20 05:48: Sodium 139, Potassium 3.7, Chloride 108 H, Carbon Dioxide 27.0, Anion Gap 4 L, BUN 12, Creatinine 0.52 L, Estim Creat Clear Calc 48.60, Est GFR (MDRD) Af Amer 200, Est GFR (MDRD) Non-Af 166, BUN/Creatinine Ratio 22.9 H, Glucose 87, Calcium 8.0 L, Total Bilirubin 0.50, AST 43 H, ALT 25, Alkaline Phosphatase 59, Total Protein 6.3 L, Albumin 2.4 L, Globulin 3.9, Albumin/Globulin Ratio 0.6 L Current Medications Acetaminophen (Acetaminophen 500 Mg Tablet) 1,000 mg PO TID [facility] Last Admin: 07/23/20 14:04 Dose: 1,000 mg Documented by: Aspirin ([facility]in E.C. 81 Mg Tablet) [facility] Last Admin: 07/23/20 08:22 Dose: 81 mg Documented by: Atorvastatin Calcium (Atorvastatin Calcium 20 Mg Tablet) 20 mg PO QHS [facility] Last Admin: 07/22/20 20:40 Dose: 20 mg Documented by: Sodium Chloride () 250 mls @ 15 mls/hr IV .[id number] PRN PRN Reason: Saline Flush Last Infusion: 07/23/20 14:06 Dose: Infused Documented by: Sodium Chloride () 250 mls @ 15 mls/hr IV .[id number] PRN PRN Reason: Additional IVPB Infusion Ferric Sodium Gluconate Complex 250 mg/ Sodium Chloride 270 mls @ 135 mls/hr IV DAILY [facility] Stop: 07/25/20 11:59 Last Infusion: 07/23/20 13:00 Dose: Infused Documented by: Melatonin (Melatonin 3 Mg Tablet) 3 mg PO QHS PRN PRN PRN Reason: INSOMNIA Metoprolol Succinate (Metoprolol(Xl)Succ 25 Mg Tablet) 25 mg PO DAILY [facility] Last Admin: 07/23/20 08:21 Dose: 25 mg Documented by: Morphine Sulfate (Morphine 2 Mg/Ml Syringe) 2 mg IV Q3H PRN PRN PRN Reason: Pain Score 6-10 Last Admin: 07/20/20 04:53 Dose: 2 mg Documented by: Nicotine (Nicotine 14 Mg Patch) 14 mg TD DAILY [facility] Last Admin: 07/23/20 08:21 Dose: 14 mg Documented by: Ondansetron HCl (Ondansetron 4 Mg/2 Ml Vial) 4 mg IV Q8H PRN PRN PRN Reason: NAUSEA/VOMITING Oxycodone HCl (Oxycodone 5 Mg Tablet) 5 - 10 mg PO Q4H PRN PRN PRN Reason: Pain Score 6-10 Last Admin: 07/23/20 13:13 Dose: 5 mg Documented by: Senna/Docusate Sodium (Senna/Docusate Sodium 1 Tablet) 1 tablet PO BID [facility] Sodium Chloride (0.9% Saline Lock 10 Ml Syringe) 10 - 40 ml IV UD PRN PRN Reason: SALINE FLUSH Last Admin: 07/23/20 10:38 Dose: 10 ml Documented by: Home Medications: Medications to take at Discharge Metoprolol Succinate [Toprol Xl] 25 mg PO DAILY 07/18/20 Simvastatin 40 mg PO QHS 07/18/20 Acetaminophen [Tylenol] 1,000 mg PO TID tab 07/23/20 Aspirin E.C. [Ecotrin] 81 mg PO BIDCM tab 07/23/20 Melatonin 3 mg PO QHS PRN PRN tab 07/23/20 Primary Care Physician: NOT,DEFINED [NON-STAFF] - Please Follow Up With: Darrell Reyes MD When: in 2 weeks Medical Necessity - Tobacco Use Smoking Status: Current every day smoker Tobacco Use: Cigarettes Meaningful Use Info Meaningful Use Diagnoses (Choose all that apply): None applicable Inpatient E&M: 18235 Disch Hosp
--- NOTE | 2020-07-23 17:05 | CASEMGMT ---
Social Work Note ARIELLA received call from Zahira at [facility] stating she spoke with mcc and pt's CM/Paylauren Schultz about pt admitting to [facility]. Zahira states [facility] can accept pt if pt has another COVID test done as his first rapid was positive. ARIELLA informed Zahira that [facility] is able to accept pt without another COVID test but will speak with pt, call mcc, call [facility] to continue discussion of SNF placement. ARIELLA attempted to call Nikolas at [facility], no answer, ARIELLA left message. ARIELLA attempted to call pt's CM/Payee [facility], no answer, ARIELLA left message. ARIELLA tried to call Marion on her cell phone she provided ([phone]), voicemail full, unable to leave message. ARIELLA in to speak with pt. ARIELLA informed pt that both [facility] and [facility] are able to accept pt but to go to [facility] pt will need to do another COVID test. ARIELLA informed pt that if he goes to [facility], he will not need to do another COVID test. Pt states he doesn't want to do another COVID test. ARIELLA asked pt if he is agreeable to go to [facility] then and pt states it doesn't matter where, that's ok. ARIELLA again asked pt if he was agreeable to admit to [facility] today and pt states ok. ARIELLA spoke with RN. Pt with femur fracture, assist of 2 for transfers/bed mobility, agree to cot transport. ARIELLA accessed trip assist and earliest [facility] can transport pt via cot is 7:30pm. ARIELLA updated RN. RN states she will update pt on transportation time. ARIELLA faxed completed discharge paperwork to [facility] including transfer to extended care facility, signed medication list, any scripts, COVID screening tool and HENS. Original in SNF folder and copy on pt's chart. ARIELLA completed convalescent 7000 in HENS. Original in SNF folder and copy on pt's chart. ARIELLA completed transportation form and placed on SNF folder and copy on pt's chart. ARIELLA did call pt's CM/Payee Marion again and was able to get a hold of her and let her know pt was agreeable to [facility] and will be discharged to [facility] tonight at 7:30pm. ARIELLA explained Medicare/Medicaid coverage at [facility]. Marion states understanding. ARIELLA placed another call to [facility] and left message for Rasheed/Nikolas that pt will admit to [facility] tonight with transportation arranged for 7:30pm. Plan: [facility] skilled tonight with [facility] transporting pt via cot at 7:30pm Kiki Cota MSW, TIME CLOCK INSPECTOR
[2020-07-23 17:06] VITALS: BP 145/83; PULSE 68; RESP 18; TEMP 37.4; O2SAT 94
--- NOTE | 2020-07-23 17:32 | NURSING ---
Report called to Rahel sheehan nurse at [facility].
[2020-07-23 20:36] VITALS: BP 149/70; PULSE 67; RESP 18; TEMP 36.8; O2SAT 98
[2020-07-23] MEDS: Atorvastatin Calcium 20 MG Tablet PO (20:38)
[2020-07-23] MEDS: Senna/Docusate Sodium 1 Tablet PO (20:38)
--- NOTE | 2020-07-23 21:30 | NURSING ---
[facility] called and stated that the weather was creating some problems for them. They will probably not be picking this pt up until around 0. If anything changes, they will let us know.
--- NOTE | 2020-07-23 21:40 | NURSING ---
Per [facility], they have arranged for [facility] to brick picker this pt in about 30-40 minutes. Christina VALENTIN aware.
== END 2020-07-23 21:47 | disposition skilled nursing facility (03) | DRG 522 ==
LOC: ED 15:14 → MS2 16:36 → MS3 07-19 11:06
PROVIDERS: Internal Medicine; Orthopaedic Surgery; Admitting Provider Family Medicine; Emergency Provider Emergency Medicine; Visit Provider Internal Medicine
PROC: 0SRR0JA Replacement of Right Hip Joint, Femoral Surface with Synthetic Substitute, Uncemented, Open Approach (ICD-10-PCS; CPT 27125; principal; 2020-07-19 09:20)
DX: S72.141A Displaced intertrochanteric fracture of right femur, initial encounter for closed fracture (principal); D62 Acute posthemorrhagic anemia; W10.8XXA Fall (on) (from) other stairs and steps, initial encounter; Y93.01 Activity, walking, marching and hiking; Y92.9 Unspecified place or not applicable; Y99.9 Unspecified external cause status; I25.2 Old myocardial infarction; I10 Essential (primary) hypertension; E87.6 Hypokalemia; E78.5 Hyperlipidemia, unspecified; F17.210 Nicotine dependence, cigarettes, uncomplicated
CPT/HCPCS: 36415; 71045; 73502; 80048; 80053; 81001; 83540; 83550; 83735; 85014; 85018; 85025; 85610; 86850; 86900; 86901; 87086; 87426; 87635; 88305; 88307; 88311; 93005; 97110; 97116; 97162; 97166; 97530; 97535; 99251; 99285; 99406; C1776; J7030; J7050; A4216; G0463; J2405; J2916; U0002

== ENCOUNTER → 2021-01-30 | Outpatient (REF) | payer MEDICARE, MEDICAID, SELFPAY ==
[2021-01-30 08:11] LABS: Absolute Lymphocyte Count 2.28 X10^3/uL (0.83-4.51); Absolute Neutrophil Count 4.1 X10^3/uL (2.0-7.7); Basophil# 0.03 X10^3/uL; Basophil% 0.4 % (0-1); Eosinophil# 0.12 X10^3/uL; Eosinophils% 1.7 % (0-5); Hematocrit 35.9 % (40-54); Hemoglobin 11.6 g/dL (13.0-16.5); Lymphocyte # 2.28 X10^3/ul (0.83-4.51); Lymphocyte % 31.8 % (19-41); Mean Corp Hgb Conc 32.3 g/dL (32-36); Mean Corpuscular Hgb 27.8 pg (27.0-32.0); Mean Corpuscular Volume 85.9 fL (80-94); Mean Platelet Vol. 9.7 fl (6.2-12.0); Monocyte# 0.66 X10^3/uL; Monocyte% 9.2 % (0-10); NRBC Flagged by Analyzer 0 % (0-5); Neutrophil # 4.06 X10^3/uL (2.7-7.7); Neutrophil % 56.6 % (47-70); Platelet Count 287 K/mm3 (150-450); RBC Distribution Width CV 14.5 % (11.6-14.6); RBC Distribution Width SD 45.5 fl (35.1-43.9); Red Blood Count 4.18 M/mm3 (4.6-6.2); White Blood Count 7.2 K/mm3 (4.4-11.0)
[2021-01-30 08:20] LABS: Anion Gap 5 (5-15); BUN 16 mg/dL (7-18); BUN/Creat Ratio 29.3 RATIO (10-20); Calcium,Total 8.8 mg/dL (8.5-10.1); Chloride 107 mmol/L (98-107); Creatinine, Serum 0.55 mg/dL (0.70-1.30); EST Glomerular Filtration Rate 158 mL/min (>60); Est Glom Filt Rate - Afr Amer 191 mL/min (>60); Glucose 84 mg/dL (74-106); Potassium 3.7 mmol/L (3.5-5.1); Sodium Level 141 mmol/L (136-145)
== END | disposition home or self-care (01) ==
LOC: OLS.SW300 05:00
PROVIDERS: Visit Provider Family Medicine
DX: D64.9 Anemia, unspecified (principal); I10 Essential (primary) hypertension
CPT/HCPCS: 36415; 80048; 85025

== ENCOUNTER → 2021-02-27 05:00 | Outpatient (REF) | payer MEDICARE, MEDICAID, SELFPAY ==
[2021-02-27 08:03] LABS: Absolute Lymphocyte Count 2.87 X10^3/uL (0.83-4.51); Absolute Neutrophil Count 3.7 X10^3/uL (2.0-7.7); Basophil# 0.03 X10^3/uL; Basophil% 0.4 % (0-1); Eosinophil# 0.15 X10^3/uL; Eosinophils% 2.1 % (0-5); Hematocrit 38.9 % (40-54); Hemoglobin 12.1 g/dL (13.0-16.5); Lymphocyte # 2.87 X10^3/ul (0.83-4.51); Lymphocyte % 39.3 % (19-41); Mean Corp Hgb Conc 31.1 g/dL (32-36); Mean Corpuscular Hgb 27.4 pg (27.0-32.0); Mean Platelet Vol. 9.4 fl (6.2-12.0); Monocyte# 0.52 X10^3/uL; Monocyte% 7.1 % (0-10); NRBC Flagged by Analyzer 0 % (0-5); Neutrophil # 3.72 X10^3/uL (2.7-7.7); Neutrophil % 50.8 % (47-70); Platelet Count 311 K/mm3 (150-450); RBC Distribution Width CV 14.6 % (11.6-14.6); Red Blood Count 4.42 M/mm3 (4.6-6.2); White Blood Count 7.3 K/mm3 (4.4-11.0)
[2021-02-27 08:23] LABS: Anion Gap 5 (5-15); BUN 12 mg/dL (7-18); BUN/Creat Ratio 18.4 RATIO (10-20); Calcium,Total 8.7 mg/dL (8.5-10.1); Chloride 108 mmol/L (98-107); Creatinine, Serum 0.65 mg/dL (0.70-1.30); EST Glomerular Filtration Rate 129 mL/min (>60); Est Glom Filt Rate - Afr Amer 156 mL/min (>60); Glucose 76 mg/dL (74-106); Sodium Level 141 mmol/L (136-145)
== END ==
LOC: OLS.SW300 05:00
PROVIDERS: Visit Provider Family Medicine
DX: D64.9 Anemia, unspecified (principal); I10 Essential (primary) hypertension
CPT/HCPCS: 36415; 80048; 85025

== ENCOUNTER → 2021-03-27 05:00 | Outpatient (REF) | payer MEDICARE, MEDICAID, SELFPAY ==
[2021-03-27 07:49] LABS: Absolute Lymphocyte Count 3.17 X10^3/uL (0.83-4.51); Absolute Neutrophil Count 5.3 X10^3/uL (2.0-7.7); Basophil# 0.03 X10^3/uL; Basophil% 0.3 % (0-1); Eosinophil# 0.13 X10^3/uL; Eosinophils% 1.4 % (0-5); Hematocrit 38.6 % (40-54); Lymphocyte # 3.17 X10^3/ul (0.83-4.51); Mean Corp Hgb Conc 31.1 g/dL (32-36); Mean Corpuscular Hgb 27.1 pg (27.0-32.0); Mean Corpuscular Volume 87.1 fL (80-94); Mean Platelet Vol. 9.7 fl (6.2-12.0); Monocyte# 0.68 X10^3/uL; Monocyte% 7.3 % (0-10); NRBC Flagged by Analyzer 0 % (0-5); Neutrophil # 5.29 X10^3/uL (2.7-7.7); Neutrophil % 56.7 % (47-70); Platelet Count 307 K/mm3 (150-450); RBC Distribution Width CV 14.4 % (11.6-14.6); RBC Distribution Width SD 46.1 fl (35.1-43.9); Red Blood Count 4.43 M/mm3 (4.6-6.2); White Blood Count 9.3 K/mm3 (4.4-11.0)
[2021-03-27 07:54] LABS: Anion Gap 9 (5-15); BUN 15 mg/dL (7-18); BUN/Creat Ratio 27.2 RATIO (10-20); Calcium,Total 8.6 mg/dL (8.5-10.1); Chloride 105 mmol/L (98-107); Creatinine, Serum 0.55 mg/dL (0.70-1.30); EST Glomerular Filtration Rate 156 mL/min (>60); Est Glom Filt Rate - Afr Amer 189 mL/min (>60); Glucose 83 mg/dL (74-106); Potassium 3.9 mmol/L (3.5-5.1); Sodium Level 139 mmol/L (136-145)
== END ==
LOC: OLS.SW300 05:00
PROVIDERS: Visit Provider Family Medicine
DX: D64.9 Anemia, unspecified (principal); I10 Essential (primary) hypertension
CPT/HCPCS: 36415; 80048; 85025

== ENCOUNTER → 2021-04-09 05:00 | Outpatient (REF) | payer MEDICARE, MEDICAID, SELFPAY ==
[2021-04-09 09:48] LABS: AST(SGOT) 11 U/L (15-37); Alanine Aminotransfer ALT/SGPT 14 U/L (16-61); Albumin, Serum 3.4 g/dL (3.2-5.0); Alkaline Phosphatase 59 U/L (45-117); Cholesterol 119 mg/dL (200); Globulin 3.6 g/dL (2.2-4.2); High Density Lipoprotein 43 mg/dL; Triglycerides 48 mg/dL; Very Low Density Lipoprotein 10 mg/dL (5-40)
== END ==
LOC: OLS.SW300 05:00
PROVIDERS: Referring Provider Family Medicine; Visit Provider Family Medicine
DX: I10 Essential (primary) hypertension (principal); E78.5 Hyperlipidemia, unspecified; Z79.899 Other long term (current) drug therapy
CPT/HCPCS: 36415; 80061; 80076

== ENCOUNTER → 2021-04-24 05:35 | Outpatient (REF) | payer MEDICARE, MEDICAID, SELFPAY ==
[2021-04-24 07:25] LABS: Hematocrit 37.8 % (40-54); Mean Corp Hgb Conc 31.7 g/dL (32-36); Mean Corpuscular Hgb 27.6 pg (27.0-32.0); Mean Corpuscular Volume 87.1 fL (80-94); Mean Platelet Vol. 9.8 fl (6.2-12.0); Platelet Count 289 K/mm3 (150-450); RBC Distribution Width CV 14.1 % (11.6-14.6); RBC Distribution Width SD 45.3 fl (35.1-43.9); Red Blood Count 4.34 M/mm3 (4.6-6.2); White Blood Count 8.6 K/mm3 (4.4-11.0)
[2021-04-24 07:41] LABS: Anion Gap 6 (5-15); BUN 9 mg/dL (7-18); BUN/Creat Ratio 14.2 RATIO (10-20); Calcium,Total 8.7 mg/dL (8.5-10.1); Chloride 107 mmol/L (98-107); Creatinine, Serum 0.64 mg/dL (0.70-1.30); EST Glomerular Filtration Rate 133 mL/min (>60); Est Glom Filt Rate - Afr Amer 161 mL/min (>60); Glucose 89 mg/dL (74-106); Sodium Level 140 mmol/L (136-145)
== END ==
LOC: OLS.SW300 05:35
PROVIDERS: Visit Provider Family Medicine
DX: D64.9 Anemia, unspecified (principal); I10 Essential (primary) hypertension
CPT/HCPCS: 36415; 80048; 85027

== ENCOUNTER → 2021-07-08 05:00 | Outpatient (REF) | payer MEDICARE, MEDICAID, SELFPAY ==
[2021-07-08 08:21] LABS: AST(SGOT) 14 U/L (15-37); Alanine Aminotransfer ALT/SGPT 15 U/L (16-61); Albumin, Serum 3.4 g/dL (3.2-5.0); Alkaline Phosphatase 67 U/L (45-117); Bilirubin, Direct 0.13 mg/dL (0.00-0.30); Cholesterol 122 mg/dL (200); Globulin 3.9 g/dL (2.2-4.2); High Density Lipoprotein 35 mg/dL; Protein, Total 7.3 g/dL (6.4-8.2); Triglycerides 86 mg/dL; Very Low Density Lipoprotein 17 mg/dL (5-40)
== END ==
LOC: OLS.SW300 05:00
PROVIDERS: Visit Provider Family Medicine
DX: Z79.899 Other long term (current) drug therapy (principal)
CPT/HCPCS: 36415; 80061; 80076

== ENCOUNTER → 2021-08-06 04:00 | Outpatient (REF) | payer MEDICARE, MEDICAID, SELFPAY ==
[2021-08-06 08:37] LABS: Absolute Lymphocyte Count 3.25 X10^3/uL (0.83-4.51); Absolute Neutrophil Count 4.8 X10^3/uL (2.0-7.7); Basophil# 0.02 X10^3/uL; Basophil% 0.2 % (0-1); Eosinophils% 1.1 % (0-5); Hemoglobin 12.3 g/dL (13.0-16.5); Lymphocyte # 3.25 X10^3/ul (0.83-4.51); Lymphocyte % 36.9 % (19-41); Mean Corp Hgb Conc 31.5 g/dL (32-36); Mean Corpuscular Hgb 27.2 pg (27.0-32.0); Mean Corpuscular Volume 86.3 fL (80-94); Mean Platelet Vol. 9.5 fl (6.2-12.0); Monocyte# 0.61 X10^3/uL; Monocyte% 6.9 % (0-10); NRBC Flagged by Analyzer 0 % (0-5); Neutrophil # 4.79 X10^3/uL (2.7-7.7); Neutrophil % 54.6 % (47-70); Platelet Count 280 K/mm3 (150-450); RBC Distribution Width CV 14.6 % (11.6-14.6); RBC Distribution Width SD 46.4 fl (35.1-43.9); Red Blood Count 4.52 M/mm3 (4.6-6.2); White Blood Count 8.8 K/mm3 (4.4-11.0)
[2021-08-06 08:54] LABS: Anion Gap 6 (5-15); BUN 15 mg/dL (7-18); Calcium,Total 8.7 mg/dL (8.5-10.1); Chloride 108 mmol/L (98-107); Creatinine, Serum 0.68 mg/dL (0.70-1.30); EST Glomerular Filtration Rate 122 mL/min (>60); Est Glom Filt Rate - Afr Amer 148 mL/min (>60); Glucose 82 mg/dL (74-106); Sodium Level 141 mmol/L (136-145)
== END ==
LOC: OLS.SW300 04:00
PROVIDERS: Referring Provider Family Medicine; Visit Provider Family Medicine
DX: D64.9 Anemia, unspecified (principal); I10 Essential (primary) hypertension
CPT/HCPCS: 36415; 80048; 85025

== ENCOUNTER → 2021-09-04 04:00 | Outpatient (REF) | payer MEDICARE, MEDICAID, SELFPAY ==
[2021-09-04 07:33] LABS: Absolute Lymphocyte Count 3.07 X10^3/uL (0.83-4.51); Absolute Neutrophil Count 4.7 X10^3/uL (2.0-7.7); Basophil# 0.02 X10^3/uL; Basophil% 0.2 % (0-1); Eosinophils% 1.2 % (0-5); Hematocrit 36.9 % (40-54); Hemoglobin 11.9 g/dL (13.0-16.5); Lymphocyte # 3.07 X10^3/ul (0.83-4.51); Lymphocyte % 35.6 % (19-41); Mean Corp Hgb Conc 32.2 g/dL (32-36); Mean Corpuscular Hgb 27.5 pg (27.0-32.0); Mean Corpuscular Volume 85.4 fL (80-94); Mean Platelet Vol. 9.6 fl (6.2-12.0); Monocyte% 8.1 % (0-10); NRBC Flagged by Analyzer 0 % (0-5); Neutrophil % 54.6 % (47-70); Platelet Count 283 K/mm3 (150-450); RBC Distribution Width CV 14.6 % (11.6-14.6); RBC Distribution Width SD 45.5 fl (35.1-43.9); Red Blood Count 4.32 M/mm3 (4.6-6.2); White Blood Count 8.6 K/mm3 (4.4-11.0)
[2021-09-04 07:54] LABS: AST(SGOT) 19 U/L (15-37); Alanine Aminotransfer ALT/SGPT 22 U/L (16-61); Albumin, Serum 3.4 g/dL (3.2-5.0); Alkaline Phosphatase 66 U/L (45-117); Bilirubin, Direct 0.13 mg/dL (0.00-0.30); Cholesterol 118 mg/dL (200); Globulin 3.4 g/dL (2.2-4.2); High Density Lipoprotein 41 mg/dL; Protein, Total 6.8 g/dL (6.4-8.2); Triglycerides 48 mg/dL; Very Low Density Lipoprotein 10 mg/dL (5-40)
== END ==
LOC: OLS.SW300 04:00
PROVIDERS: Visit Provider Family Medicine
DX: D64.9 Anemia, unspecified (principal)
CPT/HCPCS: 36415; 80061; 80076; 85025

== ENCOUNTER → 2021-12-04 | Outpatient (REF) | payer MEDICARE, MEDICAID, SELFPAY ==
[2021-12-04 08:21] LABS: Absolute Lymphocyte Count 3.85 X10^3/uL (0.83-4.51); Absolute Neutrophil Count 4.8 X10^3/uL (2.0-7.7); Basophil# 0.02 X10^3/uL; Basophil% 0.2 % (0-1); Eosinophil# 0.11 X10^3/uL; Eosinophils% 1.2 % (0-5); Hematocrit 38.8 % (40-54); Hemoglobin 12.5 g/dL (13.0-16.5); Lymphocyte # 3.85 X10^3/ul (0.83-4.51); Lymphocyte % 40.7 % (19-41); Mean Corp Hgb Conc 32.2 g/dL (32-36); Mean Corpuscular Hgb 27.6 pg (27.0-32.0); Mean Corpuscular Volume 85.7 fL (80-94); Mean Platelet Vol. 9.9 fl (6.2-12.0); Monocyte# 0.62 X10^3/uL; Monocyte% 6.6 % (0-10); NRBC Flagged by Analyzer 0 % (0-5); Neutrophil # 4.82 X10^3/uL (2.7-7.7); Platelet Count 272 K/mm3 (150-450); RBC Distribution Width CV 14.6 % (11.6-14.6); RBC Distribution Width SD 45.6 fl (35.1-43.9); Red Blood Count 4.53 M/mm3 (4.6-6.2); White Blood Count 9.5 K/mm3 (4.4-11.0)
[2021-12-04 08:29] LABS: AST(SGOT) 14 U/L (15-37); Alanine Aminotransfer ALT/SGPT 17 U/L (16-61); Albumin, Serum 3.6 g/dL (3.2-5.0); Alkaline Phosphatase 70 U/L (45-117); Bilirubin, Direct 0.16 mg/dL (0.00-0.30); Cholesterol 117 mg/dL (200); Globulin 3.4 g/dL (2.2-4.2); High Density Lipoprotein 41 mg/dL; Triglycerides 60 mg/dL; Very Low Density Lipoprotein 12 mg/dL (5-40)
== END | disposition home or self-care (01) ==
LOC: OLS.SW300 04:00
PROVIDERS: Referring Provider Family Medicine; Visit Provider Family Medicine
DX: I10 Essential (primary) hypertension (principal); D64.9 Anemia, unspecified
CPT/HCPCS: 36415; 80061; 80076; 85025

== ENCOUNTER → 2021-12-16 | Outpatient (REF) | payer MEDICARE, MEDICAID, SELFPAY ==
[2021-12-16 09:47] LABS: Vitamin D,25 Hydroxy 10.7 ng/mL
== END | disposition home or self-care (01) ==
LOC: OLS.SW300 05:00
PROVIDERS: Visit Provider Family Medicine
DX: E55.9 Vitamin D deficiency, unspecified (principal)
CPT/HCPCS: 36415; 82306

== ENCOUNTER → 2022-02-05 | Outpatient (REF) | payer MEDICARE, MEDICAID, SELFPAY ==
[2022-02-05 08:18] LABS: Vitamin D,25 Hydroxy 44.8 ng/mL
== END | disposition home or self-care (01) ==
LOC: OLS.SW300 04:00
PROVIDERS: Visit Provider Family Medicine
DX: E55.9 Vitamin D deficiency, unspecified (principal)
CPT/HCPCS: 36415; 82306

== ENCOUNTER → 2022-03-05 | Outpatient (REF) | payer MEDICARE, MEDICAID, SELFPAY ==
[2022-03-05 09:46] LABS: Absolute Lymphocyte Count 3.51 X10^3/uL (0.83-4.51); Basophil# 0.03 X10^3/uL; Basophil% 0.2 % (0-1); Eosinophil# 0.15 X10^3/uL; Eosinophils% 1.2 % (0-5); Hematocrit 38.8 % (40-54); Hemoglobin 12.4 g/dL (13.0-16.5); Lymphocyte # 3.51 X10^3/ul (0.83-4.51); Lymphocyte % 27.5 % (19-41); Mean Corpuscular Hgb 27.5 pg (27.0-32.0); Mean Platelet Vol. 9.9 fl (6.2-12.0); Monocyte# 1.05 X10^3/uL; Monocyte% 8.2 % (0-10); NRBC Flagged by Analyzer 0 % (0-5); Neutrophil # 7.98 X10^3/uL (2.7-7.7); Neutrophil % 62.5 % (47-70); Platelet Count 283 K/mm3 (150-450); RBC Distribution Width SD 47.4 fl (35.1-43.9); Red Blood Count 4.51 M/mm3 (4.6-6.2); White Blood Count 12.8 K/mm3 (4.4-11.0)
[2022-03-05 10:03] LABS: AST(SGOT) 21 U/L (15-37); Alanine Aminotransfer ALT/SGPT 26 U/L (16-61); Albumin, Serum 3.7 g/dL (3.2-5.0); Alkaline Phosphatase 72 U/L (45-117); Bilirubin, Direct 0.17 mg/dL (0.00-0.30); Cholesterol 139 mg/dL (200); Globulin 3.5 g/dL (2.2-4.2); High Density Lipoprotein 44 mg/dL; Protein, Total 7.2 g/dL (6.4-8.2); Triglycerides 68 mg/dL; Very Low Density Lipoprotein 14 mg/dL (5-40)
== END | disposition home or self-care (01) ==
LOC: OLS.SW300 00:40
PROVIDERS: Visit Provider Family Medicine
DX: I10 Essential (primary) hypertension (principal)
CPT/HCPCS: 36415; 80061; 80076; 85025

== ENCOUNTER → 2022-06-04 | Outpatient (REF) | payer MEDICARE, MEDICAID, SELFPAY ==
[2022-06-04 10:03] LABS: Absolute Lymphocyte Count 2.79 X10^3/uL (0.83-4.51); Absolute Neutrophil Count 4.5 X10^3/uL (2.0-7.7); Basophil# 0.03 X10^3/uL; Basophil% 0.4 % (0-1); Eosinophil# 0.14 X10^3/uL; Eosinophils% 1.7 % (0-5); Hematocrit 37.7 % (40-54); Hemoglobin 12.1 g/dL (13.0-16.5); Lymphocyte # 2.79 X10^3/ul (0.83-4.51); Lymphocyte % 34.5 % (19-41); Mean Corp Hgb Conc 32.1 g/dL (32-36); Mean Corpuscular Hgb 27.7 pg (27.0-32.0); Mean Corpuscular Volume 86.3 fL (80-94); Mean Platelet Vol. 10.1 fl (6.2-12.0); Monocyte# 0.63 X10^3/uL; Monocyte% 7.8 % (0-10); NRBC Flagged by Analyzer 0 % (0-5); Neutrophil # 4.47 X10^3/uL (2.7-7.7); Neutrophil % 55.4 % (47-70); Platelet Count 276 K/mm3 (150-450); RBC Distribution Width CV 14.6 % (11.6-14.6); RBC Distribution Width SD 46.4 fl (35.1-43.9); Red Blood Count 4.37 M/mm3 (4.6-6.2); White Blood Count 8.1 K/mm3 (4.4-11.0)
[2022-06-04 10:32] LABS: AST(SGOT) 21 U/L (15-37); Alanine Aminotransfer ALT/SGPT 26 U/L (16-61); Albumin, Serum 3.5 g/dL (3.2-5.0); Alkaline Phosphatase 61 U/L (45-117); Bilirubin, Direct 0.15 mg/dL (0.00-0.30); Cholesterol 134 mg/dL (200); Globulin 3.2 g/dL (2.2-4.2); High Density Lipoprotein 43 mg/dL; Protein, Total 6.7 g/dL (6.4-8.2); Triglycerides 58 mg/dL; Very Low Density Lipoprotein 12 mg/dL (5-40)
== END ==
LOC: OLS.SW300 05:00
PROVIDERS: Visit Provider Family Medicine
DX: D64.9 Anemia, unspecified (principal); Z79.899 Other long term (current) drug therapy
CPT/HCPCS: 36415; 80061; 80076; 85025

== ENCOUNTER → 2022-09-03 | Outpatient (REF) | payer MEDICARE, MEDICAID, SELFPAY ==
[2022-09-03 10:10] LABS: Absolute Lymphocyte Count 3.23 X10^3/uL (0.83-4.51); Absolute Neutrophil Count 4.6 X10^3/uL (2.0-7.7); Basophil# 0.03 X10^3/uL; Basophil% 0.3 % (0-1); Eosinophil# 0.12 X10^3/uL; Eosinophils% 1.4 % (0-5); Hematocrit 36.8 % (40-54); Lymphocyte # 3.23 X10^3/ul (0.83-4.51); Lymphocyte % 37.6 % (19-41); Mean Corp Hgb Conc 32.6 g/dL (32-36); Mean Corpuscular Hgb 28.6 pg (27.0-32.0); Mean Corpuscular Volume 87.6 fL (80-94); Mean Platelet Vol. 9.7 fl (6.2-12.0); Monocyte# 0.64 X10^3/uL; Monocyte% 7.5 % (0-10); NRBC Flagged by Analyzer 0 % (0-5); Neutrophil # 4.55 X10^3/uL (2.7-7.7); Neutrophil % 53.1 % (47-70); Platelet Count 262 K/mm3 (150-450); RBC Distribution Width SD 47.7 fl (35.1-43.9); White Blood Count 8.6 K/mm3 (4.4-11.0)
[2022-09-03 11:15] LABS: AST(SGOT) 15 U/L (15-37); Alanine Aminotransfer ALT/SGPT 20 U/L (16-61); Albumin, Serum 3.4 g/dL (3.2-5.0); Alkaline Phosphatase 54 U/L (45-117); Bilirubin, Direct 0.19 mg/dL (0.00-0.30); Cholesterol 131 mg/dL (200); Globulin 3.3 g/dL (2.2-4.2); High Density Lipoprotein 43 mg/dL; Protein, Total 6.7 g/dL (6.4-8.2); Triglycerides 79 mg/dL; Very Low Density Lipoprotein 16 mg/dL (5-40)
== END ==
LOC: OLS.SW 05:00
PROVIDERS: Visit Provider Family Medicine
DX: E78.5 Hyperlipidemia, unspecified (principal); D64.9 Anemia, unspecified; I10 Essential (primary) hypertension
CPT/HCPCS: 36415; 80061; 80076; 85025

== ENCOUNTER → 2022-12-03 | Outpatient (REF) | payer MEDICARE, MEDICAID, SELFPAY ==
[2022-12-03 08:25] LABS: Absolute Lymphocyte Count 3.62 X10^3/uL (0.83-4.51); Absolute Neutrophil Count 4.5 X10^3/uL (2.0-7.7); Basophil# 0.04 X10^3/uL; Basophil% 0.4 % (0-1); Eosinophil# 0.21 X10^3/uL; Eosinophils% 2.3 % (0-5); Hematocrit 39.2 % (40-54); Hemoglobin 12.4 g/dL (13.0-16.5); Lymphocyte # 3.62 X10^3/ul (0.83-4.51); Lymphocyte % 39.8 % (19-41); Mean Corp Hgb Conc 31.6 g/dL (32-36); Mean Corpuscular Hgb 28.2 pg (27.0-32.0); Mean Corpuscular Volume 89.1 fL (80-94); Mean Platelet Vol. 9.9 fl (6.2-12.0); Monocyte# 0.74 X10^3/uL; Monocyte% 8.1 % (0-10); NRBC Flagged by Analyzer 0 % (0-5); Neutrophil # 4.46 X10^3/uL (2.7-7.7); Neutrophil % 49.1 % (47-70); Platelet Count 282 K/mm3 (150-450); RBC Distribution Width CV 15.2 % (11.6-14.6); RBC Distribution Width SD 49.5 fl (35.1-43.9); White Blood Count 9.1 K/mm3 (4.4-11.0)
[2022-12-03 08:40] LABS: AST(SGOT) 43 U/L (15-37); Alanine Aminotransfer ALT/SGPT 44 U/L (16-61); Albumin, Serum 3.4 g/dL (3.2-5.0); Alkaline Phosphatase 52 U/L (45-117); Bilirubin, Direct 0.11 mg/dL (0.00-0.30); Cholesterol 136 mg/dL (200); Globulin 3.4 g/dL (2.2-4.2); High Density Lipoprotein 39 mg/dL; Protein, Total 6.8 g/dL (6.4-8.2); Triglycerides 123 mg/dL; Very Low Density Lipoprotein 25 mg/dL (5-40)
== END ==
LOC: OLS.SW 06:25
PROVIDERS: PCP Family Medicine; Visit Provider Family Medicine
DX: D64.9 Anemia, unspecified (principal); I10 Essential (primary) hypertension; E78.5 Hyperlipidemia, unspecified
CPT/HCPCS: 36415; 80061; 80076; 85025

== ENCOUNTER → 2023-02-21 | Outpatient (REF) | payer MEDICARE, MEDICAID, SELFPAY ==
[2023-02-21 16:06] LABS: Bacteria 0 SEEN /hpf (None Seen); Mucous, Urine 0 SEEN /hpf (<or=2+); White Blood Cells 0 SEEN /hpf (0-5)
[2023-02-21 16:28] LABS: Color, Urine Yellow (Yellow); Glucose, Dipstick Normal (Normal); Ketone-Dipstick Negative (Negative); Leukocyte Esterase-Dipstick Negative /ul (Negative); Nitrite-Dipstick Negative (Negative); Occult Blood-Urine 25 /ul (Negative); Protein-Dipstick 30 mg/dl (Negative); Specific Gravity, Urine 1.005 (1.002-1.030); Urine Bilirubin Dipstick Negative (Negative); Urine Clarity Clear (Clear); Urine Urobilinogen 1 mg/dl (Normal)
[2023-02-21 16:29] LABS: Absolute Lymphocyte Count 3.26 X10^3/uL (0.83-4.51); Absolute Neutrophil Count 7.4 X10^3/uL (2.0-7.7); Basophil# 0.04 X10^3/uL; Basophil% 0.3 % (0-1); Eosinophil# 0.12 X10^3/uL; Hematocrit 43.2 % (40-54); Hemoglobin 13.5 g/dL (13.0-16.5); Lymphocyte # 3.26 X10^3/ul (0.83-4.51); Lymphocyte % 28.2 % (19-41); Mean Corp Hgb Conc 31.3 g/dL (32-36); Mean Corpuscular Hgb 28.3 pg (27.0-32.0); Mean Corpuscular Volume 90.6 fL (80-94); Mean Platelet Vol. 9.6 fl (6.2-12.0); Monocyte# 0.66 X10^3/uL; Monocyte% 5.7 % (0-10); NRBC Flagged by Analyzer 0 % (0-5); Neutrophil # 7.43 X10^3/uL (2.7-7.7); Neutrophil % 64.5 % (47-70); Platelet Count 268 K/mm3 (150-450); RBC Distribution Width CV 14.5 % (11.6-14.6); RBC Distribution Width SD 48.1 fl (35.1-43.9); Red Blood Count 4.77 M/mm3 (4.6-6.2); White Blood Count 11.5 K/mm3 (4.4-11.0)
[2023-02-21 16:35] LABS: Red Blood Cells-Urine 0-5 SEEN /hpf (0-5); Squamous Epithelial Cells - UA 0-5 SEEN /hpf (0-5)
[2023-02-21 16:35] LABS: Erythrocyte Sedimentation Rate 15 mm/hr (0-20)
[2023-02-21 16:44] LABS: AST(SGOT) 24 U/L (15-37); Alanine Aminotransfer ALT/SGPT 24 U/L (16-61); Albumin, Serum 3.7 g/dL (3.2-5.0); Alkaline Phosphatase 64 U/L (45-117); Anion Gap 4 (5-15); BUN 8 mg/dL (7-18); BUN/Creat Ratio 9.8 RATIO (10-20); CPK Total, Creatine Kinase 147 U/L (39-308); Chloride 108 mmol/L (98-107); Creatinine, Serum 0.82 mg/dL (0.70-1.30); EST Glomerular Filtration Rate 98 mL/min (>60); Est Glom Filt Rate - Afr Amer 119 mL/min (>60); Globulin 3.8 g/dL (2.2-4.2); Glucose 122 mg/dL (74-106); Magnesium 2.2 mg/dL (1.6-2.6); Protein, Total 7.5 g/dL (6.4-8.2); Sodium Level 137 mmol/L (136-145); Thyroid Stim Hormone (TSH) 0.67 uIU/mL (0.358-3.74)
== END ==
LOC: OLS.SW 15:45
PROVIDERS: PCP Family Medicine; Visit Provider Family Medicine
DX: D64.9 Anemia, unspecified (principal); E87.6 Hypokalemia; I10 Essential (primary) hypertension; R52 Pain, unspecified; R41.82 Altered mental status, unspecified
CPT/HCPCS: 36415; 80053; 81001; 82550; 83735; 84443; 85025; 85652

== ENCOUNTER → 2023-03-09 | Outpatient (REF) | payer MEDICARE, MEDICAID, SELFPAY ==
[2023-03-09 09:10] LABS: Absolute Lymphocyte Count 3.49 X10^3/uL (0.83-4.51); Absolute Neutrophil Count 4.9 X10^3/uL (2.0-7.7); Basophil# 0.03 X10^3/uL; Basophil% 0.3 % (0-1); Eosinophil# 0.15 X10^3/uL; Eosinophils% 1.6 % (0-5); Hematocrit 40.2 % (40-54); Hemoglobin 12.6 g/dL (13.0-16.5); Lymphocyte # 3.49 X10^3/ul (0.83-4.51); Lymphocyte % 37.7 % (19-41); Mean Corp Hgb Conc 31.3 g/dL (32-36); Mean Corpuscular Hgb 27.6 pg (27.0-32.0); Monocyte# 0.63 X10^3/uL; Monocyte% 6.8 % (0-10); NRBC Flagged by Analyzer 0 % (0-5); Neutrophil # 4.91 X10^3/uL (2.7-7.7); Neutrophil % 53.2 % (47-70); Platelet Count 283 K/mm3 (150-450); RBC Distribution Width CV 14.8 % (11.6-14.6); RBC Distribution Width SD 47.4 fl (35.1-43.9); Red Blood Count 4.57 M/mm3 (4.6-6.2); White Blood Count 9.3 K/mm3 (4.4-11.0)
[2023-03-09 09:36] LABS: AST(SGOT) 22 U/L (15-37); Alanine Aminotransfer ALT/SGPT 23 U/L (16-61); Albumin, Serum 3.5 g/dL (3.2-5.0); Alkaline Phosphatase 56 U/L (45-117); Bilirubin, Direct 0.16 mg/dL (0.00-0.30); Cholesterol 126 mg/dL (200); Globulin 3.5 g/dL (2.2-4.2); High Density Lipoprotein 41 mg/dL; Triglycerides 80 mg/dL; Very Low Density Lipoprotein 16 mg/dL (5-40)
== END ==
LOC: OLS.SW 05:35
PROVIDERS: PCP Family Medicine; Visit Provider Family Medicine
DX: D64.9 Anemia, unspecified (principal); I10 Essential (primary) hypertension; E78.5 Hyperlipidemia, unspecified
CPT/HCPCS: 36415; 80061; 80076; 85025

== ENCOUNTER → 2023-06-07 | Outpatient (REF) | payer MEDICARE, MEDICAID, SELFPAY ==
[2023-06-07 08:14] LABS: Absolute Lymphocyte Count 4.01 X10^3/uL (0.83-4.51); Absolute Neutrophil Count 4.7 X10^3/uL (2.0-7.7); Basophil# 0.03 X10^3/uL; Basophil% 0.3 % (0-1); Eosinophil# 0.14 X10^3/uL; Eosinophils% 1.5 % (0-5); Hematocrit 37.4 % (40-54); Hemoglobin 11.8 g/dL (13.0-16.5); Lymphocyte # 4.01 X10^3/ul (0.83-4.51); Lymphocyte % 42.1 % (19-41); Mean Corp Hgb Conc 31.6 g/dL (32-36); Mean Corpuscular Hgb 27.3 pg (27.0-32.0); Mean Corpuscular Volume 86.6 fL (80-94); Monocyte# 0.62 X10^3/uL; Monocyte% 6.5 % (0-10); NRBC Flagged by Analyzer 0 % (0-5); Neutrophil % 49.4 % (47-70); Platelet Count 303 K/mm3 (150-450); RBC Distribution Width CV 14.5 % (11.6-14.6); Red Blood Count 4.32 M/mm3 (4.6-6.2); White Blood Count 9.5 K/mm3 (4.4-11.0)
[2023-06-07 08:36] LABS: AST(SGOT) 18 U/L (15-37); Alanine Aminotransfer ALT/SGPT 25 U/L (16-61); Albumin, Serum 3.4 g/dL (3.2-5.0); Alkaline Phosphatase 59 U/L (45-117); Bilirubin, Direct 0.13 mg/dL (0.00-0.30); Cholesterol 124 mg/dL (200); Globulin 3.4 g/dL (2.2-4.2); High Density Lipoprotein 44 mg/dL; Protein, Total 6.8 g/dL (6.4-8.2); Triglycerides 77 mg/dL; Very Low Density Lipoprotein 15 mg/dL (5-40)
== END ==
LOC: OLS.SW 05:00
PROVIDERS: PCP Family Medicine; Visit Provider Family Medicine
DX: D64.9 Anemia, unspecified (principal); I10 Essential (primary) hypertension; E78.5 Hyperlipidemia, unspecified
CPT/HCPCS: 36415; 80061; 80076; 85025

== ENCOUNTER 2023-09-27 05:34 | Emergency (ER) | payer MEDICARE, MEDICAID, SELFPAY ==
[2023-09-27 05:35] VITALS: BP 159/80; PULSE 63; RESP 18; TEMP 37; O2SAT 97; BMI 21.4
--- NOTE | 2023-09-27 05:36 | CT_ITS ---
EXAM: CT HEAD WITHOUT INTRAVENOUS CONTRAST CLINICAL INDICATION: altered LOC TECHNIQUE: Multiple axial images were obtained of the head without intravenous contrast. This CT exam was performed using one or more of the following dose reduction techniques: automated exposure control, adjustment of the mA and/or kV according to patient size, and/or use of iterative reconstruction technique. RADIATION DOSE: CTDIvol = 44.99 mGy, DLP = 914.22 mGy-cm COMPARISON: No relevant prior studies available. FINDINGS: BRAIN AND EXTRA-AXIAL SPACES: Diffuse cerebral volume loss. Periventricular small vessel ischemic changes. Chronic right temporoparietal lobe infarct. No intra- or extra-axial hemorrhage. No intracranial mass or mass effect. Posterior fossa structures are unremarkable. No hydrocephalus. Basal cisterns are patent. BONES/JOINTS: Unremarkable. No discrete lytic or blastic abnormalities. VASCULATURE: Vascular calcifications. SINUSES: Unremarkable as visualized. Clear. MASTOID AIR CELLS: Unremarkable. Clear. ORBITS: Visualized globes, extraocular muscles, optic nerves and retrobulbar fat appear unremarkable. CT/Brain/Head without Contrast IMPRESSION: 1. No acute intracranial abnormalities. 2. Age-related changes. 3. Chronic right temporoparietal lobe infarct. Electronically Signed: Nasir Toussaint MD at 6:45 EST ,
--- NOTE | 2023-09-27 05:36 | RAD_ITS ---
EXAM: XR CHEST, 2 VIEWS CLINICAL INDICATION: fever TECHNIQUE: Frontal and lateral views of the chest. COMPARISON: Single view chest 07/21/2020 FINDINGS: LUNGS AND PLEURAL SPACES: Unremarkable. No consolidation or edema. No pneumothorax. No effusion. HEART: Unremarkable. Cardiac silhouette not enlarged. MEDIASTINUM: Central airways and mediastinal contour are unremarkable. BONES/JOINTS: Unremarkable. No acute fracture. SOFT TISSUES: Unremarkable. RAD/Chest PA and Lateral IMPRESSION: No radiographic evidence of acute cardiopulmonary disease. Electronically Signed: Nasir Toussaint MD at 6:39 EST ,
--- NOTE | 2023-09-27 05:37 | EX.ED.DYSGE1 ---
HPI History of Present Illness Chief Complaint: General Illness Informant: patient and EMS Narrative Narrative: EMS brings this patient in at 5:30 AM after being [facility] for possible seizure. They state that the story changed from the staff at the jail. The patient did not want to be transported but the nurses demanded that he be transported to the ER. The patient does not have any complaints. EMS states that nursing told them that they witnessed him have some shaking that they thought may be a seizure while lying in his bed, bumping his head on part of the bed. The patient does not remember. Apparently right afterwards, he got up and was able to walk and there was no postictal period. It is unknown if he has a history of seizures or not but his medications do not suggest so. The patient did not talk for EMS but he does respond to questions by shaking his head yes or no, and he denies any complaints for me. EMS states that upon their screening evaluation, he had a temperature of 100.9. Patient denies any symptoms of an illness recently. [facility] Medical History (Updated 09/27/23 @ 06:[address] Israel Ness MD) Blindness of right eye High cholesterol HTN (hypertension) Home Medications metoprolol succinate 25 mg tablet,extended release 24 hr 25 mg PO DAILY blood pressure 07/18/20 [History Last Taken Unknown] simvastatin 40 mg tablet 40 mg PO QHS cholesterol 07/18/20 [History Last Taken Unknown] acetaminophen 500 mg tablet 1,000 mg (2 x 500 mg) PO TID 07/23/20 [Rx Last Taken Unknown] aspirin 81 mg tablet,delayed release 81 mg PO BIDCM 07/23/20 [Rx Last Taken Unknown] melatonin 3 mg tablet 3 mg PO QHS PRN PRN Insomnia 07/23/20 [Rx Last Taken Unknown] Allergy/AdvReac Type Severity Reaction Status Date / Time No Known Allergies Allergy Verified 09/27/23 05:42 Social History Smoking Status: Current every day smoker ROS ROS ED Review of Systems ROS Unobtainable: other Details: Not talking but shaking head yes and no to questions. Somewhat limited ROS due to this and unsure what happened this morning. Constitutional Constitutional ED: Denies chills Eyes Eyes: Denies change in vision or diplopia ENT ENT ED: Denies rhinorrhea or sore throat Cardiovascular Cardiovascular: Denies chest pain or palpitations Respiratory/Chest Respiratory/Chest: Denies cough or dyspnea Gastrointestinal Gastrointestinal: Denies abdominal pain, diarrhea, nausea or vomiting Genitourinary Genitourinary ED: Denies dysuria Musculoskeletal Musculoskeletal: Denies back pain or neck pain Integumentary Denies abscess or rash Neurologic Neurologic: Denies headache(s) EXAM Physical Exam Const Vital Signs: 09/27/23 05:35 09/27/23 06:09 09/27/23 06:16 Temperature 98.6 F Temperature Source Oral Pulse Rate 63 70 Respiratory Rate 18 Blood Pressure 159/80 H Blood Pressure Mean 106 Pulse Ox 97 Oxygen Delivery Method Room Air Room Air Positive well nourished and well developed General Appearance ED: well developed and NAD HEENT Reports moist mucous membranes HEENT Narrative: No evidence of bitten tongue normocephalic and atraumatic Eyes PERRL and EOMs intact bilaterally Eyes Narrative: Clouded right cornea Neck full ROM, no lymphadenopathy and supple Chest Wall inspection of chest normal and palpation of chest normal Resp normal respiratory effort and clear to auscultation bilaterally Cardio regular rate, regular rhythm and no murmurs Rate: Negative for tachycardic GI non-tender and non-distended Auscultation: normoactive bowel sounds Palpation: soft Back/Spine no CVA tenderness General Back: other FROM Extremity normal to inspection Extremity Narrative: Full range of motion without pain anywhere General Extremety ED: Negative for edema, pulses abnormal or tenderness General Extremity: Negative for edema or pulses abnormal Neuro CN's II-XII intact bilaterally and no sensory deficits noted Neuro Narrative: Moves all 4 extremities without difficulty. Will not speak but nods yes and no to questions and able to use his hand to sign tablet for EMS Sensorium / Orientation: awake and alert Motor Exam: strength 5/5 throughout Skin no rashes or lesions noted and no wounds MDM MDM MDM Narrative Medical decision making narrative: Seizure may be in the differential diagnosis as is syncope with myoclonus. Basic labs obtained as well as a screen for infection given his low-grade temperature, and a CT of the head. This includes a COVID/influenza/RSV screen. 0615: Nursing here discussed with SNF staff. No one witnessed anything. An aide walked by this morning and found him lying on the floor with a red jolie on his forehead, which she does not have at this time, and were concerned about the possibility of seizure only because the possibility was raised a year or 2 ago in a different episode. No one saw him convulse tonight but he was found on the floor and conscious when they checked on him. They state that he is very noncompliant. Of note, the patient yelled expletives when undergoing blood draw here, and is able to speak. EKG, troponin, the rest of his labs are unremarkable. Given the change in history noted above, I do not think he needs a delta troponin, as now the more current version of the history is more consistent with the patient falling out of bed in the middle of the night. His head CT shows no acute intracranial injury, I reviewed the images and the report which I agree with. Patient is doing well relatively and plan is to discharge him back to jail. There is no anion gap to suggest a lactic acidosis, making seizure much less likely here, not out of the realm of possibility. However with a negative head CT I do not know that even if he did have a seizure that I would start him on antiepileptics at this time. The patient refuses to provide urinary sample and is quite angry with the nurses that he is here. Given that, I do not think it is worth forcing him to provide us a sample, [facility]. Lab Data Attestation: I reviewed the patient's lab results. Labs: Laboratory Results - last 24 hr 09/27/23 06:00 WBC 8.7 RBC 4.83 Hgb 13.1 Hct 41.2 MCV 85.3 MCH 27.1 MCHC 31.8 L RDW Std Deviation 46.3 H RDW Coeff of Tabby 15.0 H Plt Count 301 MPV 9.5 Immature Gran % (Auto) 0.300 Neut % (Auto) 64.3 Lymph % (Auto) 26.3 [place] % (Auto) 6.9 Eos % (Auto) 1.6 Baso % (Auto) 0.6 Absolute Neuts (auto) 5.6 Absolute Lymphs (auto) 2.29 Nucleated RBC % 0 Sodium 143 Potassium 3.5 Chloride 111 H Carbon Dioxide 28.0 Anion Gap 4 L BUN 11 Creatinine 0.99 Estim Creat Clear Calc 59.34 Est GFR (MDRD) Af Amer 96 Est GFR (MDRD) Non-Af 79 BUN/Creatinine Ratio 11.1 Glucose 91 Calcium 9.4 Troponin I High Sens 12 Radiography Chest X-Ray - ED: 1 View, Read by ED Physician, No Acute Disease and No Infiltrates Diagnostic Testing: Clinical Impression(s) from Imaging Studies Brain CT 09/27/23 05:36 IMPRESSION: 1. No acute intracranial abnormalities. 2. Age-related changes. 3. Chronic right temporoparietal lobe infarct. Electronically Signed: Nasir Toussaint MD at 6:45 EST Reading Location ID and State: [facility] / [place] Tel , Service support , Chest X-Ray 09/27/23 05:36 IMPRESSION: No radiographic evidence of acute cardiopulmonary disease. Electronically Signed: Nasir Toussaint MD at 6:39 EST Reading Location ID and State: [facility] / [place] Tel , Service support , Rhythm Strip Rhythm Strip: Sinus Rhythm Rate: 65 Ectopy: None EKG Initial EKG: Attestation: I personally reviewed and interpreted this EKG as follows: Interpretation: Sinus Rhythm, No Acute Injury Pattern and AV Block (1st deg) Prior EKG tracings: available for review (2019) Prior: Unchanged Discharge Plan Triage Chief Complaint: General Illness ED Provider: Israel Ness Dx/Rx/DC Orders Clinical Impression: Closed head injury without concussion, Accidental fall from bed Instructions: ED Head Injury (Adult) Prescriptions: Continued simvastatin 40 MG tablet 40 mg PO QHS metoprolol succinate 25 MG tablet extended release 24 hr 25 mg PO DAILY melatonin 3 MG tablet 3 mg PO QHS PRN PRN (Reason: Insomnia) 0RF aspirin 81 MG tablet 81 mg PO BIDCM 0RF acetaminophen 500 MG tablet 1,000 mg PO TID 0RF Primary Care Provider: Gibran Haddad Referrals: Gibran Haddad MD [Primary Care Provider] - As Needed Disposition Disposition: [facility] Facility
--- OUTSIDE RECORDS SUMMARY | 2023-09-27 05:56 | XMS RPT_ITS | CCD ---
Author Name Unknown Address [address] [place] [address] Organization [facility] Care Team Providers Care Circulator Name Role Phone Unavailable Unavailable Unavailable Kenny Roblero Unavailable Unavailable Kenny Roblero Unavailable Unavailable Unavailable Primary Care Provider Unavailabl e Ilda, Physician Primary Care Provider Unavailabl e GENOVEVA APONTE Attending Unavailable NO, PHYSICIAN Primary Care Unavailable Paula Zurita Primary Care Provider Medications Current Medications Medication Drug Class(es) Dates Sig (Normalized) Sig (Original) acetaminophen 325 mg oral tablet (2 sources) Start: 04-18-2020 take 2 tablets by mouth once daily in the morning acetaminophen (TYLENOL) 325 MG tablet Indications: Arthritis of knee, right Take 2 (two) tablets (650 mg total) by mouth every morning . 30 tablet 5 04/18/2020 Active Problems Active Problems Problem Classification Problem Date Documented Da te Episodic/Chronic Blindness and vision defects (1 source) Blind right eye; Translations: [Blind right eye] Onset: 07-18-2019 07-18-2019 Chronic Cataract (1 source) Age-related cataract of left eye; Translations: [Age-related cataract of left eye] Onset: 07-18-2019 07-18-2019 Coronary atherosclerosis and other heart disease (1 source) Coronary arteriosclerosis; Translations: [Coronary artery disease] Onset: 07-18-2019 07-18-2019 Chronic Essential hypertension (1 source) Benign hypertension; Translations: [Benign hypertension] Onset: 07-18-2019 07-18-2019 Chronic Malaise and fatigue (1 source) Asthenia; Translations: [Weakness generalized] Episodic Other non-traumatic joint disorders (1 source) Arthritis of right knee; Translations: [Arthritis of knee, right] Onset: 07-18-2019 07-18-2019 Substance-related disorders (1 source) Nicotine dependence; Translations: [Cigarette nicotine dependence without complication] Onset: 10-23-2019 10-23-2019 Chronic Past or Other Problems Problem Classification Problem Date Documented Date Episodic/Chronic Other connective tissue disease (1 source) Pain in toe; Translations: [Pain due to onychomycosis of toenails of both feet] Onset: 04-30-2020 04-30-2020 Episodic Other nervous system disorders (1 source) Impaired cognition; Translations: [Cognitive decline] Onset: 04-30-2020 04-30-2020 Episodic Results Test Name Value Interpretation Reference Range Facil ity Vital Signs Date Time Vital Sign Value Performing Clinician Faci lity 06-21-2019 12:07-0400 BMI (Body Mass Index) 22.81 kg/m2 [facility] 06-21-2019 12:07-0400 Body Temperature 97.81 [degF] [facility] 06-21-2019 12:07-0400 Body weight 68.04 kg [facility] 06-21-2019 12:07-0400 BP Diastolic 91 mm[Hg] [facility] 06-21-2019 12:07-0400 BP Systolic 143 mm[Hg] Genoveva [facility] 06-21-2019 12:07-0400 Height 172.7 cm [facility] 06-21-2019 12:07-0400 Pulse (Heart Rate) 89 /min [facility] 06-21-2019 12:07-0400 Pulse Oximetry 98 % [facility] 06-21-2019 12:07-0400 Respiratory Rate 18 /min [facility] Encounters Encounter Date Encounter Type Care Provider Facility Start: 09-30-2020 End: 09-30-2020 Orders Only Adali Quintero Work Phone: [facility] Start: 06-21-2019 End: 06-21-2019 Emergency department patient visit Genoveva Smith Blair Work Phone: [facility] Emergency Department Procedures Date Procedure Procedure Detail Performing Clinician Start: 04-18-2020 Adult depression screening assessment Adali Quintero Start: 06-21-2019 Basic metabolic 2000 panel - Serum or Plasma Genoveva Aponte Work Phone: Start: 06-21-2019 Complete blood count with white cell differential, automated Genoveva Aponte Work Phone: Start: 06-21-2019 Complete blood count with white cell differential, manual Genoveva Aponte Work Phone: Start: 06-21-2019 Hepatic function 200 0 panel - Serum or Plasma Genoveva Aponte Work Phone: Start: 06-21-2019 Urinalysis Genoveva Aponte Work Phone: Start: 10-14-2018 Ethanol [Mass/volume ] in Serum or Plasma Luis Acevedo Work Phone: Start: 06-16-2018 End: 06-16-2018 Complete blood count with white cell differential, manual Kenny Roblero Work Phone: Start: 06-16-2018 End: 06-16-2018 Urate [Mass/volume] in Serum or Plasma Kenny Roblero Work Phone: Plan of Treatment Date Care Activity Detail Author Start: 04-18-2021 Adolescent depressio n screening assessment Depression Screening (PHQ9) [facility] Start: 07-18-2020 History and physical examination, annual for health maintenance Wellness Visit [facility] Start: 04-23-2020 Influenza vaccination given Se quential Influenza Vaccine (#1) [facility] Start: 2016 Pneumococcal vaccination Pneum ococcal Vaccine Age 65+ (1 of 2 - PCV13) [facility] Start: 2001 Administration of he rpes zoster vaccine Zoster Vaccines (1 of 2) [facility] Start: 2001 Screening for malign ant neoplasm of colon [facility] Start: 1969 Hepatitis C antibody , confirmatory test Hepatitis C Screening [facility] Start: 1967 COVID-19 Vaccine (1 of 2) COVID-19 V accine (1 of 2) [facility] Start: 1951 Fall risk assessment Falls Risk Asse ssment [facility] Start: 1951 Prostate specific an tigen measurement PSA Level [facility] Start: 1951 Tetanus vaccination Tetanus: Every 1 0yrs [facility] Start: 1951 US scan of abdominal aorta Abdominal Aortic Ultrasound [facility] Payers Date Payer Category Payer Medicaid [id number] 2019 Medicaid [place] [id number] 2019-Present [id number] 2018 Medicaid [id number] 2016 Medicare MEDICARE MEDICAR E PART A & B xxxxxxxxxx 2016-Present [place] xxxxxxxxxx [id number] 2016 Medicare [id number] 2016 Medicare MEDICARE MEDICAR E PART A & B [id number] 2016-Present [place] [id number] 1951 Unknown [id number] Unknown [id number] Social History Date Type Detail Facility Tobacco smoking status [facility] Unknown if ev er smoked [facility] Sex Assigned At Not on file [facility] Start: 06-21-2019 End: 04-18-2020 Tobacco smoking status SCIS Heavy tobacco smoker [facility] Start: 06-21-2019 End: 04-18-2020 Cigarettes smoked current (pack per day) - Reported [facility] Start: 06-21-2019 End: 04-18-2020 Alcohol intake Ex-drinker (finding) [facility] Start: 04-18-2020 Tobacco use and exposure Never used [facility] Summary Purpose Family History No Family History Records FoundNo Family History Records Found Advance Directives Documents on File Type Date Recorded 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 * Weakness: Generalized (Togolese) * Muscle Conditioning: Exercises (Togolese) documented in this encounter Assessments Diagnosis Weakness generalized- Primary Other malaise and fatigue Additional Source Comments (unrecognized sect ion and content) No Status Records FoundNo Status Records Found INFORMATION SOURCE (unrecogn ized section and content) DATE CREATED AUTHOR AUTHOR'S ORGANIZ ATION 07/19/2019 [facility] Reason for Visit (unrecogniz ed section and content) Catalina Corrigan RN - 06/21/2019 12:42 PM EDTCatalina Corrigan RN - 06/21/2019 12:18 PM Radha Lima RN - 06/21/2019 12:10 PM EDGenoveva Seay MD - 06/21/2019 12:06 PM EDT ED Notes (unrecognized secti on and content) BEDSIDE TO HELP PT REMOVE HIS SHOES, PT INQUIRING ABOUT SMOKING A CIGARETTE AND FOOD. PT UPDATED ON PLAN OF CARE Ambulated pt to restroom, with standby assistance. Pt provided urine specimen. Bed: 39 Expected date: Expected time: Means of arrival: Comments: r1 [facility] ED Attending Note: NAME: Michael Pierre 68 y.o. CSN: [id number] PCP: Physician No History: Chief Complaint: well adult check HPI: The history was obtained from the patient and EMS. Michael is a 68 y.o. male who presents with a chief complaint of well adult check. 68-year-old - [place] male from the [facility] for worsening ataxia decreased mental status. EMS states that he was recently released from [facility] to the [facility]. The patient denies complaint. States his right knee hurts him sometimes but not now. He is debilitated beyond his years. PMHx: Past Medical History: Diagnosis Date Medical history unknown PMSx: Past Surgical History: Procedure Laterality Date ABDOMINAL SURGERY FOR ULCERS FAM. Hx: History reviewed. No pertinent family history. SOC. Hx: Social History Socioeconomic History Marital status: Single Spouse name: Not on file Number of children: Not on file Years of education: Not on file Highest education level: Not on file Occupational History Not on file Social Needs Financial resource strain: Not on file Food insecurity: Worry: Not on file Inability: Not on file Transportation needs: Medical: Not on file Non-medical: Not on file Tobacco Use Smoking status: Heavy Tobacco Smoker Packs/day: 0.50 Smokeless tobacco: Never Used Substance and Sexual Activity Alcohol use: Not Currently Drug use: Never Sexual activity: Not on file Lifestyle Physical activity: Days per week: Not on file Minutes per session: Not on file Stress: Not on file Relationships Social connections: Talks on phone: Not on file Gets together: Not on file Attends buddhist service: Not on file Active member of club or organization: Not on file Attends meetings of clubs or organizations: Not on file Relationship status: Not on file Other Topics Concern Not on file Social History Narrative Not on file MEDs: No current outpatient medications on file prior to encounter. ALL: No Known Allergies ROS: Positives and pertinent negatives as per HPI. All other systems were reviewed and are negative. Physical Exam: Patient Vitals for the past 24 hrs: BP Temp Temp src Pulse Resp SpO2 Height Weight 06/21/19 1207 (!) 143/91 97.8 F (36.6 C) Oral 89 18 98 % 5' 8 68 kg (150 lb) Physical Exam Constitutional: Appearance: He is well-developed. HENT: Head: Normocephalic and atraumatic. Nose: Nose normal. Eyes: General: No scleral icterus. Comments: Blind in right eye Cardiovascular: Rate and Rhythm: Regular rhythm. Heart sounds: No murmur. Pulmonary: Effort: Pulmonary effort is normal. No respiratory distress. Musculoskeletal: Comments: No obvious long bone fractures Skin: General: Skin is warm. Findings: No rash. Neurological: Mental Status: He is alert. Comments: Patient does well with yes no type questions; there is no focal motor deficit rather generalized weakness Psychiatric: Behavior: Behavior normal. Comments: Patient is pleasant Laboratory & Radiological Imaging (if done): Labs Reviewed BASIC METABOLIC PANEL - Abnormal; Notable for the following components: Result Value Anion Gap 8 (*) Creatinine 0.79 (*) BUN/Creatinine Ratio 27.8 (*) All other components within normal limits Narrative: The eGFR should be used for monitoring renal function only and not for medication dosing. HEPATIC FUNCTION PANEL - Abnormal; Notable for the following components: Total Protein 8.3 (*) ALT 12 (*) All other components within normal limits URINALYSIS - Abnormal; Notable for the following components: Clarity, Urine Hazy (*) Specific [place] 1.026 (*) Protein, Urine 30 (*) Ketones, Urine Trace (*) Urobilinogen, Urine 2.0 (*) All other components within normal limits Narrative: Microscopic examination is performed on all urinalysis samples and only positive findings are reported. The test for blood on the chemical analytic portion of urinalysis may also be positive due to hemoglobinuria and myoglobinuria and if red blood cells are present they are quantified by microscopic examination. CBC WITH AUTO DIFFERENTIAL - Abnormal; Notable for the following components: Hemoglobin 12.4 (*) Hematocrit 39.6 (*) Platelets 456 (*) RDW - CV 15.0 (*) MPV 8.8 (*) All other components within normal limits CBC AND DIFFERENTIAL Narrative: The following orders were created for panel order CBC w/ Diff. Procedure Abnormality Status --------- ------ CBC Auto Differential[[id number]] Abnormal Final result Please view results for these tests on the individual orders. No orders to display I suspect that patient has been institutionalized for a long time and is merely physically weak from lack of activity Clinical Impression: 1. Weakness generalized Disposition: Patient is being discharged to home MARINA APONTE MD [facility] Emergency Department (Please note that portions of this note have been completed with a voice recognition software. Efforts were made to correct any errors, but occasionally words are mis-transcribed.) Genoveva Aponte MD 06/21/19 1305 PT ARRIVES TO ER VIA EMS FROM [facility] WHERE HE HAS RESIDED FOR THE LAST WEEK. PT WAS RECENTLY RELEASED FROM [facility]. PT IS A POOR HISTORIAN, REPLIES I DON'T THINK SO WHEN ASKED REGARDING HIS PMH AND USE OF DAILY MEDICATIONS. PT IS UNKEMPT. PT DOES NOT CURRENTLY HAVE ANY COMPLAINTS, HOWEVER STAFF AT THE [facility] STATED HE HAS A FEW EPISODES OF INCONTINENCE THAT HAVE SEEMED TO HAVE WORSEN OVER THE PAST FEW DAYS. PT ANSWERS ALL QUESTIONS APPROPRIATELY. PT IS DIFFICULT TO UNDERSTAND DUE TO LACK OF TEETH AND NO DENTURES. Dr Aponte at bedside upon pt arrival to er. Pt accompanied by EMS documented in this encounter FOR RECORDS PERTAINING TO PATIENTS WHO ARE OR HAVE BEEN ENROLLED IN A CHEMICAL DEPENDENCY/SUBSTANCEABUSE PROGRAM, SOME INFORMATION MAY BE OMITTED. This clinical summary was aggregated from multiple sources. Caution should be exercised in using it in the provision of clinical care. This summary normalizes information from multiple sources, and as a consequence, information in this document may materially change the coding, format and clinical context of patient data. In addition, data may be omitted in some cases. CLINICAL DECISIONS SHOULD BE BASED ON THE PRIMARY CLINICAL RECORDS. [employer] provides no warranty or guarantee of the accuracy or completeness of information in this document.
[2023-09-27 06:16] VITALS: PULSE 70
[2023-09-27 06:19] LABS: Absolute Lymphocyte Count 2.29 X10^3/uL (0.83-4.51); Absolute Neutrophil Count 5.6 X10^3/uL (2.0-7.7); Basophil# 0.05 X10^3/uL; Basophil% 0.6 % (0-1); Eosinophil# 0.14 X10^3/uL; Eosinophils% 1.6 % (0-5); Hematocrit 41.2 % (40-54); Hemoglobin 13.1 g/dL (13.0-16.5); Lymphocyte # 2.29 X10^3/ul (0.83-4.51); Lymphocyte % 26.3 % (19-41); Mean Corp Hgb Conc 31.8 g/dL (32-36); Mean Corpuscular Hgb 27.1 pg (27.0-32.0); Mean Corpuscular Volume 85.3 fL (80-94); Mean Platelet Vol. 9.5 fl (6.2-12.0); Monocyte% 6.9 % (0-10); NRBC Flagged by Analyzer 0 % (0-5); Neutrophil # 5.61 X10^3/uL (2.7-7.7); Neutrophil % 64.3 % (47-70); Platelet Count 301 K/mm3 (150-450); RBC Distribution Width SD 46.3 fl (35.1-43.9); Red Blood Count 4.83 M/mm3 (4.6-6.2); White Blood Count 8.7 K/mm3 (4.4-11.0)
[2023-09-27 06:48] LABS: Anion Gap 4 (5-15); BUN 11 mg/dL (7-18); BUN/Creat Ratio 11.1 RATIO (10-20); Calcium,Total 9.4 mg/dL (8.5-10.1); Chloride 111 mmol/L (98-107); Creatinine, Serum 0.99 mg/dL (0.70-1.30); EST Glomerular Filtration Rate 79 mL/min (>60); Est Glom Filt Rate - Afr Amer 96 mL/min (>60); Estimated Creatinine Clearance 59.34 ml/min; Glucose 91 mg/dL (74-106); Potassium 3.5 mmol/L (3.5-5.1); Sodium Level 143 mmol/L (136-145); Troponin-I HS (w/2H Reflex) 12 pg/mL (3.0-78.0)
--- NOTE | 2023-09-27 07:43 | ED.RN ---
pt refuses to give a urine sample
--- NOTE | 2023-09-27 07:58 | NURSING ---
CALLED FOR WHEELCHAIR RIDE. ETA IS 1 HR
[2023-09-27 08:00] VITALS: PULSE 57; RESP 16; O2SAT 97
--- NOTE | 2023-09-27 08:01 | ED.RN ---
pt refuses bp taken
[2023-09-27 08:06] LABS: Reflex Troponin-HS? (from REC) Y
== END 2023-09-27 08:57 | disposition skilled nursing facility (03) ==
PROVIDERS: Emergency Provider Emergency Medicine; PCP Family Medicine; Visit Provider Emergency Medicine
DX: S06.0XAA Concussion with loss of consciousness status unknown, initial encounter (principal); F17.200 Nicotine dependence, unspecified, uncomplicated; W06.XXXA Fall from bed, initial encounter
CPT/HCPCS: 70450; 71046; 80048; 84484; 85025; 87631; 93005; 99283; A4216

== ENCOUNTER → 2023-12-08 | Outpatient (REF) | payer MEDICARE, MEDICAID, SELFPAY ==
[2023-12-08 09:04] LABS: Absolute Lymphocyte Count 2.86 X10^3/uL (0.83-4.51); Absolute Neutrophil Count 5.7 X10^3/uL (2.0-7.7); Basophil# 0.04 X10^3/uL; Basophil% 0.4 % (0-1); Eosinophil# 0.12 X10^3/uL; Eosinophils% 1.3 % (0-5); Hematocrit 44.8 % (40-54); Hemoglobin 13.6 g/dL (13.0-16.5); Lymphocyte # 2.86 X10^3/ul (0.83-4.51); Lymphocyte % 30.8 % (19-41); Mean Corp Hgb Conc 30.4 g/dL (32-36); Mean Corpuscular Hgb 26.8 pg (27.0-32.0); Mean Corpuscular Volume 88.2 fL (80-94); Mean Platelet Vol. 10.3 fl (6.2-12.0); Monocyte# 0.58 X10^3/uL; Monocyte% 6.2 % (0-10); NRBC Flagged by Analyzer 0 % (0-5); Neutrophil # 5.67 X10^3/uL (2.7-7.7); Neutrophil % 61.1 % (47-70); Platelet Count 281 K/mm3 (150-450); RBC Distribution Width CV 14.8 % (11.6-14.6); RBC Distribution Width SD 48.2 fl (35.1-43.9); Red Blood Count 5.08 M/mm3 (4.6-6.2); White Blood Count 9.3 K/mm3 (4.4-11.0)
[2023-12-08 09:25] LABS: AST(SGOT) 18 U/L (15-37); Alanine Aminotransfer ALT/SGPT 17 U/L (16-61); Albumin, Serum 3.5 g/dL (3.2-5.0); Alkaline Phosphatase 71 U/L (45-117); Bilirubin, Direct 0.16 mg/dL (0.00-0.30); Cholesterol 133 mg/dL (200); High Density Lipoprotein 41 mg/dL; Protein, Total 7.5 g/dL (6.4-8.2); Triglycerides 76 mg/dL; Very Low Density Lipoprotein 15 mg/dL (5-40)
== END ==
LOC: OLS.SW 05:00
PROVIDERS: PCP Family Medicine; Visit Provider Family Medicine
DX: D64.9 Anemia, unspecified (principal); E78.5 Hyperlipidemia, unspecified
CPT/HCPCS: 36415; 80061; 80076; 85025

== ENCOUNTER → 2024-05-15 | Outpatient (REF) | payer MEDICARE, MEDICAID, SELFPAY ==
[2024-05-15 08:47] LABS: Hematocrit 39.1 % (40-54); Hemoglobin 12.4 g/dL (13.0-16.5); Mean Corp Hgb Conc 31.7 g/dL (32-36); Mean Corpuscular Hgb 27.2 pg (27.0-32.0); Mean Corpuscular Volume 85.7 fL (80-94); Mean Platelet Vol. 10.5 fl (6.2-12.0); Platelet Count 264 K/mm3 (150-450); RBC Distribution Width CV 14.6 % (11.6-14.6); RBC Distribution Width SD 46.2 fl (35.1-43.9); Red Blood Count 4.56 M/mm3 (4.6-6.2); White Blood Count 8.1 K/mm3 (4.4-11.0)
[2024-05-15 09:40] LABS: Anion Gap 10 (5-15); BUN 25 mg/dL (7-18); BUN/Creat Ratio 34.8 RATIO (10-20); Chloride 110 mmol/L (98-107); Creatinine, Serum 0.72 mg/dL (0.70-1.30); EST Glomerular Filtration Rate 114 mL/min (>60); Est Glom Filt Rate - Afr Amer 138 mL/min (>60); Glucose 99 mg/dL (74-106); Potassium 3.4 mmol/L (3.5-5.1); Sodium Level 143 mmol/L (136-145)
== END ==
LOC: OLS.SW 05:00
PROVIDERS: PCP Family Medicine; Visit Provider Family Medicine
DX: D64.9 Anemia, unspecified (principal); R56.9 Unspecified convulsions
CPT/HCPCS: 36415; 80048; 85027; 96374; 96375

== ENCOUNTER → 2024-06-07 | Outpatient (REF) | payer MEDICARE, MEDICAID, SELFPAY ==
[2024-06-07 09:02] LABS: Absolute Lymphocyte Count 2.62 X10^3/uL (0.83-4.51); Absolute Neutrophil Count 5.6 X10^3/uL (2.0-7.7); Basophil# 0.02 X10^3/uL; Basophil% 0.2 % (0-1); Eosinophils% 1.1 % (0-5); Hematocrit 42.4 % (40-54); Hemoglobin 13.3 g/dL (13.0-16.5); Lymphocyte # 2.62 X10^3/ul (0.83-4.51); Lymphocyte % 29.2 % (19-41); Mean Corp Hgb Conc 31.4 g/dL (32-36); Mean Corpuscular Hgb 26.8 pg (27.0-32.0); Mean Corpuscular Volume 85.3 fL (80-94); Mean Platelet Vol. 10.4 fl (6.2-12.0); Monocyte# 0.57 X10^3/uL; Monocyte% 6.4 % (0-10); NRBC Flagged by Analyzer 0 % (0-5); Neutrophil # 5.64 X10^3/uL (2.7-7.7); Neutrophil % 62.9 % (47-70); Platelet Count 238 K/mm3 (150-450); RBC Distribution Width CV 14.6 % (11.6-14.6); RBC Distribution Width SD 45.2 fl (35.1-43.9); Red Blood Count 4.97 M/mm3 (4.6-6.2)
[2024-06-07 09:16] LABS: AST(SGOT) 16 U/L (15-37); Alanine Aminotransfer ALT/SGPT 18 U/L (16-61); Albumin, Serum 3.5 g/dL (3.2-5.0); Alkaline Phosphatase 94 U/L (45-117); Bilirubin, Direct 0.14 mg/dL (0.00-0.30); Cholesterol 130 mg/dL (200); Globulin 3.8 g/dL (2.2-4.2); High Density Lipoprotein 44 mg/dL; Protein, Total 7.3 g/dL (6.4-8.2); Triglycerides 94 mg/dL; Very Low Density Lipoprotein 19 mg/dL (5-40)
== END ==
LOC: OLS.SW 05:00
PROVIDERS: PCP Family Medicine; Visit Provider Family Medicine
DX: I10 Essential (primary) hypertension (principal); E78.5 Hyperlipidemia, unspecified
CPT/HCPCS: 36415; 80061; 80076; 85025

== ENCOUNTER → 2024-06-09 | Outpatient (REF) | payer MEDICARE, MEDICAID, SELFPAY ==
[2024-06-12 07:07] LABS: KEPPRA (LEVETIRACETAM) 23.2 ug/mL (10.0-40.0)
== END ==
LOC: OLS.SW 05:00
PROVIDERS: PCP Family Medicine; Visit Provider Family Medicine
DX: R56.9 Unspecified convulsions (principal)
CPT/HCPCS: 36415; 80177

== ENCOUNTER → 2024-06-12 | Outpatient (REF) | payer MEDICARE, MEDICAID, SELFPAY ==
[2024-06-14 16:10] LABS: KEPPRA (LEVETIRACETAM) 13.6 ug/mL (10.0-40.0)
== END ==
LOC: OLS.SW 07:15
PROVIDERS: PCP Family Medicine; Visit Provider Internal Medicine
DX: Z79.899 Other long term (current) drug therapy (principal)
CPT/HCPCS: 36415; 80177

== ENCOUNTER → 2024-08-14 06:20 | Outpatient (REF) | payer MEDICARE, MEDICAID, SELFPAY ==
[2024-08-14 08:46] LABS: Hematocrit 35.6 % (40-54); Hemoglobin 11.3 g/dL (13.0-16.5); Mean Corp Hgb Conc 31.7 g/dL (32-36); Mean Corpuscular Hgb 27.2 pg (27.0-32.0); Mean Corpuscular Volume 85.6 fL (80-94); Mean Platelet Vol. 10.2 fl (6.2-12.0); Platelet Count 235 K/mm3 (150-450); RBC Distribution Width CV 15.3 % (11.6-14.6); RBC Distribution Width SD 47.3 fl (35.1-43.9); Red Blood Count 4.16 M/mm3 (4.6-6.2); White Blood Count 7.6 K/mm3 (4.4-11.0)
[2024-08-14 09:19] LABS: Anion Gap 4 (5-15); BUN 13 mg/dL (7-18); BUN/Creat Ratio 18.4 RATIO (10-20); Calcium,Total 8.8 mg/dL (8.5-10.1); Chloride 111 mmol/L (98-107); Creatinine, Serum 0.71 mg/dL (0.70-1.30); EST Glomerular Filtration Rate 116 mL/min (>60); Est Glom Filt Rate - Afr Amer 141 mL/min (>60); Glucose 85 mg/dL (74-106); Potassium 3.9 mmol/L (3.5-5.1); Sodium Level 141 mmol/L (136-145)
== END ==
LOC: OLS.SW 06:20
PROVIDERS: PCP Family Medicine; Visit Provider Family Medicine
DX: D64.9 Anemia, unspecified (principal); I10 Essential (primary) hypertension
CPT/HCPCS: 36415; 80048; 85027

== ENCOUNTER → 2024-09-27 05:00 | Outpatient (REF) | payer MEDICARE, MEDICAID, SELFPAY ==
[2024-09-27 06:45] LABS: Absolute Lymphocyte Count 3.32 X10^3/uL (0.83-4.51); Absolute Neutrophil Count 4.6 X10^3/uL (2.0-7.7); Basophil# 0.03 X10^3/uL; Basophil% 0.3 % (0-1); Eosinophil# 0.15 X10^3/uL; Eosinophils% 1.7 % (0-5); Hematocrit 36.5 % (40-54); Hemoglobin 11.6 g/dL (13.0-16.5); Lymphocyte # 3.32 X10^3/ul (0.83-4.51); Lymphocyte % 37.1 % (19-41); Mean Corp Hgb Conc 31.8 g/dL (32-36); Mean Corpuscular Hgb 26.9 pg (27.0-32.0); Mean Corpuscular Volume 84.5 fL (80-94); Mean Platelet Vol. 9.8 fl (6.2-12.0); Monocyte# 0.82 X10^3/uL; Monocyte% 9.2 % (0-10); NRBC Flagged by Analyzer 0 % (0-5); Neutrophil # 4.61 X10^3/uL (2.7-7.7); Neutrophil % 51.5 % (47-70); Platelet Count 243 K/mm3 (150-450); RBC Distribution Width SD 46.3 fl (35.1-43.9); Red Blood Count 4.32 M/mm3 (4.6-6.2)
[2024-09-27 06:47] LABS: ALB/GLOB Ratio 0.9 RATIO (0.9-2.4); AST(SGOT) 22 U/L (15-37); Alanine Aminotransfer ALT/SGPT 22 U/L (16-61); Albumin, Serum 3.2 g/dL (3.2-5.0); Alkaline Phosphatase 72 U/L (45-117); Anion Gap 6 (5-15); BUN 18 mg/dL (7-18); BUN/Creat Ratio 22.3 RATIO (10-20); Calcium,Total 8.6 mg/dL (8.5-10.1); Chloride 111 mmol/L (98-107); Cholesterol 129 mg/dL (200); Creatinine, Serum 0.81 mg/dL (0.70-1.30); EST Glomerular Filtration Rate 100 mL/min (>60); Est Glom Filt Rate - Afr Amer 121 mL/min (>60); Globulin 3.6 g/dL (2.2-4.2); Glucose 86 mg/dL (74-106); High Density Lipoprotein 55 mg/dL; Potassium 3.7 mmol/L (3.5-5.1); Protein, Total 6.8 g/dL (6.4-8.2); Sodium Level 143 mmol/L (136-145); Triglycerides 90 mg/dL; Very Low Density Lipoprotein 18 mg/dL (5-40)
[2024-09-27 09:16] LABS: Vitamin B12 263 pg/mL (211-911)
[2024-10-03 04:06] LABS: KEPPRA (LEVETIRACETAM) 24.2 ug/mL (10.0-40.0)
== END ==
LOC: OLS.SW 05:00
PROVIDERS: PCP Family Medicine; Visit Provider Internal Medicine
DX: D64.9 Anemia, unspecified (principal); R56.9 Unspecified convulsions; E87.5 Hyperkalemia
CPT/HCPCS: 36415; 80053; 80061; 80177; 82607; 85025

== ENCOUNTER → 2024-11-14 | Outpatient (REF) | payer MEDICARE, MEDICAID, SELFPAY ==
[2024-11-14 10:11] LABS: Mean Corp Hgb Conc 31.7 g/dL (32-36); Mean Corpuscular Hgb 27.5 pg (27.0-32.0); Mean Corpuscular Volume 86.9 fL (80-94); Mean Platelet Vol. 10.4 fl (6.2-12.0); Platelet Count 254 K/mm3 (150-450); RBC Distribution Width CV 15.2 % (11.6-14.6); RBC Distribution Width SD 48.3 fl (35.1-43.9); Red Blood Count 4.72 M/mm3 (4.6-6.2)
[2024-11-14 11:57] LABS: Anion Gap 11 (5-15); BUN 20 mg/dL (4-19); BUN/Creat Ratio 23.7 RATIO (10-20); Calcium,Total 9.6 mg/dL (7.6-11.0); Carbon Dioxide 27.3 mmol/L (21.0-32.0); Chloride 106 mmol/L (98-108); Creatinine, Serum 0.85 mg/dL (0.70-1.20); EST Glomerular Filtration Rate 92 (>60); Glucose 80 mg/dL (70-99); Potassium 4.2 mmol/L (3.3-5.1); Sodium Level 145 mmol/L (133-145)
== END ==
LOC: OLS.SW 04:00
PROVIDERS: PCP Family Medicine; Referring Provider Internal Medicine; Visit Provider Internal Medicine
DX: D64.9 Anemia, unspecified (principal); I10 Essential (primary) hypertension; G40.89 Other seizures
CPT/HCPCS: 36415; 80048; 85027

== ENCOUNTER → 2024-12-07 04:00 | Outpatient (REF) | payer MEDICARE, MEDICAID, SELFPAY ==
[2024-12-07 08:38] LABS: Absolute Lymphocyte Count 3.57 X10^3/uL (0.83-4.51); Absolute Neutrophil Count 4.4 X10^3/uL (2.0-7.7); Basophil# 0.04 X10^3/uL; Basophil% 0.5 % (0-1); Eosinophil# 0.15 X10^3/uL; Eosinophils% 1.7 % (0-5); Hematocrit 38.2 % (40-54); Hemoglobin 12.2 g/dL (13.0-16.5); Lymphocyte # 3.57 X10^3/ul (0.83-4.51); Lymphocyte % 40.3 % (19-41); Mean Corp Hgb Conc 31.9 g/dL (32-36); Mean Corpuscular Hgb 27.4 pg (27.0-32.0); Mean Corpuscular Volume 85.7 fL (80-94); Mean Platelet Vol. 10.2 fl (6.2-12.0); Monocyte# 0.66 X10^3/uL; Monocyte% 7.5 % (0-10); NRBC Flagged by Analyzer 0 % (0-5); Neutrophil % 49.7 % (47-70); Platelet Count 265 K/mm3 (150-450); RBC Distribution Width CV 14.6 % (11.6-14.6); RBC Distribution Width SD 45.5 fl (35.1-43.9); Red Blood Count 4.46 M/mm3 (4.6-6.2); White Blood Count 8.9 K/mm3 (4.4-11.0)
[2024-12-07 09:16] LABS: AST(SGOT) 29 U/L (<=37); Alanine Aminotransfer ALT/SGPT 22 U/L (<=46); Albumin, Serum 3.9 g/dL (3.4-4.8); Alkaline Phosphatase 79 U/L (40-129); Bilirubin, Direct 0.18 mg/dL (0.00-0.30); Cholesterol 142 mg/dL (<=200); Globulin 2.9 g/dL (2.2-4.2); High Density Lipoprotein 48 mg/dL; Low Density Lipoprotein Calc. 74 mg/dL; Protein, Total 6.8 g/dL (5.9-8.4); Total Bilirubin 0.46 mg/dL (0.00-1.30); Triglycerides 97 mg/dL; Very Low Density Lipoprotein 19 mg/dL (5-40); cholesterol:hdl ratio screen 2.94
== END ==
LOC: OLS.SW 04:00
PROVIDERS: PCP Family Medicine; Referring Provider Internal Medicine; Visit Provider Internal Medicine
DX: D64.9 Anemia, unspecified (principal); I10 Essential (primary) hypertension; E78.5 Hyperlipidemia, unspecified
CPT/HCPCS: 36415; 80061; 80076; 85025

== ENCOUNTER → 2025-02-14 | Outpatient (REF) | payer MEDICARE, MEDICAID, SELFPAY ==
[2025-02-14 09:04] LABS: Hematocrit 37.8 % (40-54); Hemoglobin 11.8 g/dL (13.0-16.5); Mean Corp Hgb Conc 31.2 g/dL (32-36); Mean Corpuscular Hgb 27.1 pg (27.0-32.0); Mean Corpuscular Volume 86.9 fL (80-94); Mean Platelet Vol. 10.5 fl (6.2-12.0); Platelet Count 261 K/mm3 (150-450); RBC Distribution Width CV 14.9 % (11.6-14.6); RBC Distribution Width SD 47.6 fl (35.1-43.9); Red Blood Count 4.35 M/mm3 (4.6-6.2); White Blood Count 10.7 K/mm3 (4.4-11.0)
[2025-02-14 09:37] LABS: Anion Gap 10 (5-15); BUN 16 mg/dL (4-19); BUN/Creat Ratio 19.8 RATIO (10-20); Calcium,Total 8.9 mg/dL (7.6-11.0); Carbon Dioxide 25.9 mmol/L (21.0-32.0); Chloride 108 mmol/L (98-108); Creatinine, Serum 0.81 mg/dL (0.70-1.20); EST Glomerular Filtration Rate 93 (>60); Glucose 85 mg/dL (70-99); Potassium 3.8 mmol/L (3.3-5.1); Sodium Level 145 mmol/L (133-145)
[2025-02-14 09:42] LABS: Vitamin D,25 Hydroxy 34.4 ng/mL (30-100)
== END ==
LOC: OLS.SW 04:00
PROVIDERS: PCP Family Medicine; Referring Provider Internal Medicine; Visit Provider Internal Medicine
DX: R56.9 Unspecified convulsions (principal); I10 Essential (primary) hypertension; D64.9 Anemia, unspecified
CPT/HCPCS: 36415; 80048; 82306; 85027

== ENCOUNTER → 2025-05-17 | Outpatient (REF) | payer MEDICARE, MEDICAID, SELFPAY ==
[2025-05-17 09:34] LABS: Hematocrit 39.0 % (40-54); Hemoglobin 12.8 g/dL (13.0-16.5); Mean Corp Hgb Conc 32.8 g/dL (32-36); Mean Corpuscular Volume 85.5 fL (80-94); Mean Platelet Vol. 10.2 fl (6.2-12.0); Platelet Count 291 K/mm3 (150-450); RBC Distribution Width CV 14.9 % (11.6-14.6); RBC Distribution Width SD 46.4 fl (35.1-43.9); Red Blood Count 4.56 M/mm3 (4.6-6.2); White Blood Count 9.1 K/mm3 (4.4-11.0)
[2025-05-17 10:07] LABS: BUN 12 mg/dL (4-19); BUN/Creat Ratio 18.7 RATIO (10-20); Calcium,Total 8.7 mg/dL (7.6-11.0); Carbon Dioxide 23.5 mmol/L (21.0-32.0); Chloride 109 mmol/L (98-108); Glucose 86 mg/dL (70-99); Potassium 4.0 mmol/L (3.3-5.1)
[2025-05-17 10:11] LABS: Anion Gap 12 (5-15)
== END ==
LOC: OLS.SW 06:25
PROVIDERS: PCP Family Medicine; Visit Provider Internal Medicine
DX: D64.9 Anemia, unspecified (principal); I10 Essential (primary) hypertension
CPT/HCPCS: 36415; 80048; 85027

== ENCOUNTER → 2025-07-12 | Outpatient (REF) | payer MEDICARE, MEDICAID, SELFPAY ==
[2025-07-14 09:08] LABS: KEPPRA (LEVETIRACETAM) 20.6 ug/mL (10.0-40.0)
== END ==
LOC: OLS.SW 07:40
PROVIDERS: PCP Family Medicine; Visit Provider Internal Medicine
DX: G40.89 Other seizures (principal); Z79.899 Other long term (current) drug therapy
CPT/HCPCS: 36415; 80177